=== PATIENT | male | born 1950 | race Caucasian/White ===

== ENCOUNTER 2017-03-04 12:54 | Observation (INO) | payer MEDICARE, OTHER ==
--- NOTE | 2017-03-04 13:39 | ER Document Report ---
ED Medical Screen (RME) - General Chief Complaint: Chest Pain Stated Complaint: CHEST PAIN Time Seen by Provider: 03/04/17 13:38 Notes: Patient states he has had some left shoulder pain for several days and is seen a physician and was diagnosed with a muscle strain. Today he developed shortness of breath nausea and severe chest pain. His states that he looked "white". He states the chest pain is eased off but he still has bad left shoulder pain. He denies any previous history of cardiac disease, however patient has had a stroke in the past. TRAVEL OUTSIDE OF THE [place] IN LAST 30 DAYS: No - Related Data Allergies/Adverse Reactions: meloxicam [From needmade] Allergy (Verified 03/04/17 13:05) Past Medical History - Past Medical History Cardiac Medical History: Reports: Hx Hypercholesterolemia, Hx Hypertension Endocrine Medical History: Reports: Hx Diabetes Mellitus Type 2 Renal/ Medical History: Reports: Hx Kidney Stones. Denies: Hx Peritoneal Dialysis Malignancy Medical History: Reports Hx Skin Cancer Psychiatric Medical History: Reports: Hx Depression Past Surgical History: Reports: Hx Abdominal Surgery - hernia repair x2, Hx Bowel Surgery - colon removal, Hx Orthopedic Surgery - left knee, right 4th finger, left 1st and 2nd partial amputations, Hx Tonsillectomy - Immunizations Immunizations up to date: No Hx Diphtheria, Pertussis, Tetanus Vaccination: No Physical Exam - Vital signs Vitals: Temp Pulse Resp BP Pulse Ox 99.6 F 94 20 128/92 H 96 03/04/17 13:06 03/04/17 13:06 03/04/17 13:06 03/04/17 13:06 03/04/17 13:06 Course - Vital Signs Vital signs: Temp Pulse Resp BP Pulse Ox 99.6 F 94 20 128/92 H 96 03/04/17 13:06 03/04/17 13:06 03/04/17 13:06 03/04/17 13:06 03/04/17 13:06
--- NOTE | 2017-03-04 15:25 | RADIOLOGY REPORT (SQ) ---
EXAM DESCRIPTION: CHEST PA/LAT COMPLETED DATE/TIME: 03/04/2017 2:34 pm REASON FOR STUDY: cp COMPARISON: 04/30/2016 EXAM PARAMETERS: NUMBER OF VIEWS: two views TECHNIQUE: Digital Frontal and Lateral radiographic views of the chest acquired. RADIATION DOSE: NA LIMITATIONS: none FINDINGS: LUNGS AND PLEURA: No opacities, masses or pneumothorax. No pleural effusion. MEDIASTINUM AND HILAR STRUCTURES: No masses or contour abnormalities. HEART AND VASCULAR STRUCTURES: Heart normal size. No evidence for failure. BONES: No acute findings. HARDWARE: None in the chest. OTHER: No other significant finding. IMPRESSION: NO SIGNIFICANT RADIOGRAPHIC FINDING IN THE CHEST. TECHNICAL DOCUMENTATION: JOB ID: [id number] [employer]- All Rights Reserved
[2017-03-04 15:44] LABS: ABSOLUTE BASOPHILS # (AUTO) 0.1 10^3/uL (0.0-0.2); ABSOLUTE LYMPHOCYTES (AUTO) 3.1 10^3/uL (0.5-4.7); ABSOLUTE MONOCYTES (AUTO) 0.6 10^3/uL (0.1-1.4); ABSOLUTE NEUT (AUTO) 9.6 10^3/uL (1.7-8.2); BASOPHILS % (AUTO) 0.5 % (0-2); EOSINOPHILS % (AUTO) 0.4 % (0-6); HEMATOCRIT 45.4 % (37.9-51.0); HEMOGLOBIN 15.3 g/dL (13.5-17.0); HGB HCT DIFFERENCE 0.5; MEAN CORPUSCULAR HEMOGLOBIN 29.8 pg (27.0-33.4); MEAN CORPUSCULAR HGB CONC 33.7 g/dL (32.0-36.0); MEAN CORPUSCULAR VOLUME 89 fl (80-97); MONOCYTES % (AUTO) 4.5 % (3-13); RED BLOOD COUNT 5.12 10^6/uL (4.35-5.55); RED CELL DISTRIBUTION WIDTH 13.7 % (11.5-14.0); SEGMENTED NEUTROPHILS % (AUTO) 71.6 % (42-78); WHITE BLOOD COUNT 13.4 10^3/uL (4.0-10.5)
[2017-03-04] MEDS ORDERED: HYDROCODONE/ACETAMINOPHEN 5-325 MG TABLET PO ONE (16:01)
[2017-03-04] MEDS ORDERED: LIDOCAINE 5% (700 MG) TRANSDERMAL ADH..PATCH TP ONE (16:01)
--- NOTE | 2017-03-04 16:04 | ER Document Report ---
ED Cardiac - General Chief Complaint: Chest Pain Stated Complaint: CHEST PAIN Time Seen by Provider: 03/04/17 13:38 Mode of Arrival: Ambulatory Information source: Patient, Relative Notes: Patient states that he was working in his garage this afternoon and developed sharp midsternal chest pain around 1230. Patient states the pain lasted for about 2 hours and then resolved while waiting here in the emergency department. Patient states that when his symptoms started he did have some ringing in his ears. Patient denies any nausea, vomiting, cough or shortness of breath. Patient does state that he has had left upper back and left arm pain for the past 10 days for which she had been treated by his primary doctor with pain medication and steroids. Patient just finished a course of steroids yesterday and has a follow-up appointment with his primary doctor regarding his left upper extremity pain this week. Patient does have a history of previous CVA, diabetes, dyslipidemia and hypertension. Patient denies any known history of heart disease. TRAVEL OUTSIDE OF THE [place] IN LAST 30 DAYS: No - HPI Patient complains to provider of: Chest pain Was the onset of pain: Sudden Chest pain location: Substernal Quality of pain: Sharp Severity at worst: Moderate Pain level currently: Denies Cardiac risk factors: Diabetes, Hypertension, Dyslipidemia Positive cardiac history: No Associated symptoms: Back pain. denies: Heartburn, Nausea/vomiting, Shortness of breath Exacerbated by: Denies Relieved by: Nothing Similar symptoms previously: No Recently seen / treated by doctor: Yes - Related Data Allergies/Adverse Reactions: meloxicam [From NormOxys] Allergy (Verified 03/04/17 13:05) Home Medications: Current Home Medications Amlodipine Besylate [Norvasc 2.5 mg Tablet] 2.5 mg PO DAILY 03/04/17 [History] Atorvastatin Calcium [Lipitor 10 mg Tablet] 10 mg PO DAILY 03/04/17 [History] Buprenorphine [Butrans] 1 patch TD PEPE@1000 03/04/17 [History] Duloxetine HCl [Cymbalta] 60 mg PO Q12 03/04/17 [History] Gabapentin [Neurontin 300 mg Capsule] 300 mg PO Q8 03/04/17 [History] Hydrocodone/Acetaminophen [Hydrocodon-Acetaminophen 5-325] 1 tab PO Q8HP PRN [History] Metformin HCl [Metformin HCl ER] 500 mg PO DAILY 03/04/17 [History] Pantoprazole Sodium [Protonix] 40 mg PO DAILY 03/04/17 [History] Pantoprazole Sodium [Protonix] 40 mg PO DAILY 03/04/17 [History] Past Medical History - General Information source: Patient - Social History Smoking Status: Never Smoker Chew tobacco use (# tins/day): No Frequency of alcohol use: None Drug Abuse: None Occupation: Retired Lives with: Spouse/Significant other Family History: Reviewed & Not Pertinent Patient has suicidal ideation: No - Past Medical History Cardiac Medical History: Reports: Hx Hypercholesterolemia, Hx Hypertension Denies: Hx Heart Attack Neurological Medical History: Reports: Hx Cerebrovascular Accident Endocrine Medical History: Reports: Hx Diabetes Mellitus Type 2 Renal/ Medical History: Reports: Hx Kidney Stones. Denies: Hx Peritoneal Dialysis Malignancy Medical History: Reports Hx Skin Cancer Psychiatric Medical History: Reports: Hx Depression Past Surgical History: Reports: Hx Abdominal Surgery - hernia repair x2, Hx Bowel Surgery - colon removal, Hx Orthopedic Surgery - left knee, right 4th finger, left 1st and 2nd partial amputations, Hx Tonsillectomy - Immunizations Immunizations up to date: No Hx Diphtheria, Pertussis, Tetanus Vaccination: No Review of Systems - Review of Systems Constitutional: No symptoms reported. denies: Fever, Recent illness EENT: No symptoms reported Cardiovascular: Chest pain. denies: Syncope, Dizziness, Lightheaded Respiratory: No symptoms reported. denies: Cough, Short of breath Gastrointestinal: No symptoms reported. denies: Nausea, Vomiting Genitourinary: No symptoms reported Male Genitourinary: No symptoms reported Musculoskeletal: Back pain, Muscle pain - Left upper extremity Skin: No symptoms reported Hematologic/Lymphatic: No symptoms reported Neurological/Psychological: No symptoms reported. denies: Confusion Physical Exam - Vital signs Vitals: Temp Pulse Resp BP Pulse Ox 99.6 F 94 20 128/92 H 96 03/04/17 13:06 03/04/17 13:06 03/04/17 13:06 03/04/17 13:06 03/04/17 13:06 - General General appearance: Appears well, Alert In distress: None - HEENT Head: Normocephalic, Atraumatic Eyes: Normal Conjunctiva: Normal Nasal: Normal Mouth/Lips: Normal Neck: Normal, Supple. No: Lymphadenopathy - Respiratory Respiratory status: No respiratory distress Chest status: Nontender Breath sounds: Normal. No: Rales, Rhonchi, Stridor, Wheezing Chest palpation: Normal - Cardiovascular Rhythm: Regular Heart sounds: S1 appreciated, S2 appreciated Murmur: No - Abdominal Inspection: Normal Distension: No distension Bowel sounds: Normal Tenderness: Nontender - Back Back: Tender - right trapezius muscle tenderness. No: CVA tenderness, Vertebra tenderness - Extremities General upper extremity: Normal inspection, Nontender, Normal ROM General lower extremity: Normal inspection, Nontender, Normal ROM - Neurological Neuro grossly intact: Yes [place] Coma Scale Eye Opening: Spontaneous [place] Coma Scale Verbal: Oriented [place] Coma Scale Motor: Obeys Commands [place] Coma Scale Total: 15 Speech: Dysarthria - Psychological Associated symptoms: Normal affect, Normal mood - Skin Skin Temperature: Warm Skin Moisture: Dry Skin Color: Normal Course - Re-evaluation Re-evalutation: 03/04/17 17:15 Patient continues to deny any chest pain at this time. Vital signs stable. 03/04/17 18:11 Patient denies any chest pain at this time. Vital signs stable. Patient states pain medication has helped his left shoulder and upper extremity pain. Patient with a heart score of 4, 2 points for age, 2 points for risk factors. Consulted with Dr. Cooper who agrees with plan of care. Consulted with Dr. Villasenor who agrees to accept patient as a telemetry observation admission - Vital Signs Vital signs: Temp Pulse Resp BP Pulse Ox 99.6 F 94 8 L 128/90 H 96 03/04/17 13:06 03/04/17 13:06 03/04/17 17:31 03/04/17 17:31 03/04/17 17:31 - Laboratory Result Diagrams: 03/04/17 15:20 03/04/17 16:25 Laboratory results interpreted by me: 03/04/17 03/04/17 15:20 16:25 WBC 13.4 H Absolute Neutrophils 9.6 H Carbon Dioxide 34 H BUN 22 H Glucose 114 H AST 16 L Creatine Kinase 37 L - Diagnostic Test Radiology reviewed: Reports reviewed - EKG Interpretation by Mt EKG shows normal: Sinus rhythm Rate: Normal Discharge - Discharge Clinical Impression: Chest pain Qualifiers: Chest pain type: unspecified Qualified Code(s): R07.9 - Chest pain, unspecified Condition: Stable Disposition: ADMITTED OBSERVATION Admitting Provider: Hospitalist Unit Admitted: Telemetry
[2017-03-04 17:04] LABS: ALANINE AMINOTRANSFERASE 43 U/L (21-72); ALKALINE PHOSPHATASE 75 U/L (38-126); ANION GAP 10 (5-19); ASPARTATE AMINO TRANSFERASE 16 U/L (17-59); BILIRUBIN,DIRECT 0.4 mg/dL (0.0-0.4); BLOOD UREA NITROGEN 22 mg/dL (7-20); CALCIUM 9.9 mg/dL (8.4-10.2); CARBON DIOXIDE 34 mmol/L (22-30); CHLORIDE 100 mmol/L (98-107); CREATINE KINASE 37 U/L (55-170); CREATININE RESULT 0.79 mg/dL (0.52-1.25); GLUCOSE 114 mg/dL (75-110); POTASSIUM 4.1 mmol/L (3.6-5.0); SODIUM 143.7 mmol/L (137-145); TOTAL PROTEIN 6.5 g/dL (6.3-8.2)
[2017-03-04 17:15] LABS: CREATINE KINASE MB 1.35 ng/mL (<4.55)
[2017-03-04 17:18] LABS: TROPONIN I < 0.012 ng/mL
[2017-03-04] MEDS ORDERED: ONDANSETRON 4 MG TAB.RAPDIS PO PRN (18:18)
[2017-03-04] MEDS ORDERED: ACETAMINOPHEN 325 MG TABLET PO PRN (18:18)
[2017-03-04] MEDS ORDERED: ONDANSETRON HCL INJ/PF 4 MG/2 ML SDV IV PRN (18:18)
[2017-03-04] MEDS ORDERED: GLUCAGON,HUMAN RECOMB 1 MG INJ IM PRN (18:38)
[2017-03-04] MEDS ORDERED: DEXTROSE 40% GEL 15 GM TUBE PO PRN ×2 (18:38)
[2017-03-04] MEDS ORDERED: DEXTROSE 50%-WATER 25 GM/50 ML DISP.SYRIN IV PRN ×2 (18:38)
[2017-03-04] MEDS ORDERED: INSULIN LISPRO 100 UNIT/ML 3 ML VIAL SUBCUT PRN (18:38)
--- NOTE | 2017-03-04 18:38 | EKG REPORT ---
SEVERITY:- NORMAL ECG - SINUS RHYTHM : Confirmed by: Chloe Mclain 04-Mar-2017 18:36:43
--- NOTE | 2017-03-04 18:54 | PDOC H&P ---
History of Present Illness Admission Date/PCP: DIANNA HEBERT MD Patient complains of: Chest pain History of Present Illness: DAYRON WILEY is a 66 year old maleWho has no history of coronary artery disease but does have hypertension and diabetes who presented with chest pain. The patient reports that today he was doing minimal exertion and developed substernal chest pain. He described it as 10 out of 10 sharp pain. It did not radiate. Over the last week however he has been having pain in his left shoulder and left arm. He recently saw his primary care doctor who felt that this was most likely musculoskeletal gave him some steroids with some improvement. Patient did not have any pain in his arm or shoulder today when he had his chest pain. He denies having any nausea vomiting or diaphoresis. The patient denies any palpitations or tachycardia. He denies any cough. Denies any fevers or chills. Denies any lower extremity edema. Denies any orthopnea or PND. The patient does take an aspirin every day and did take it today. Past Medical History Cardiac Medical History: Reports: Hyperlipidema, Hypertension Denies: Myocardial Infarction Pulmonary Medical History: Reports: None Neurological Medical History: Reports: Hemorrhagic CVA, Ischemic CVA Endocrine Medical History: Reports: Diabetes Mellitus Type 2 Renal/ Medical History: Reports: None Malignancy Medical History: Reports: Skin Cancer - Malignant melanoma GI Medical History: Reports: Gastroesophageal Reflux Disease Psychiatric Medical History: Reports: Depression Traumatic Medical History: Reports: None Hematology: Reports: None Infectious Medical History: Reports: None Past Surgical History Past Surgical History: Reports: Orthopedic Surgery - left knee, right 4th finger , left 1st and 2nd partial amputations, Tonsillectomy, Other - Prostatectomy secondary to prostate cancer. Partial colectomy at age 19. Social History Lives with: Spouse/Significant other Smoking Status: Never Smoker Frequency of Alcohol Use: None Hx Recreational Drug Use: No Drugs: None Hx Prescription Drug Abuse: No - Advance Directive Resuscitation Status: Full Code Surrogate healthcare decision maker:: Family History Family History: No history of heart disease. Parental Family History Reviewed: Yes Children Family History Reviewed: No Sibling(s) Family History Reviewed.: No Medication/Allergy Home Medications: Amlodipine Besylate [Norvasc 2.5 mg Tablet] 2.5 mg PO DAILY 03/04/17 Atorvastatin Calcium [Lipitor 10 mg Tablet] 10 mg PO DAILY 03/04/17 Buprenorphine [Butrans] 1 patch TD PEPE@1000 03/04/17 Duloxetine HCl [Cymbalta] 60 mg PO Q12 03/04/17 Gabapentin [Neurontin 300 mg Capsule] 300 mg PO Q8 03/04/17 Hydrocodone/Acetaminophen [Hydrocodon-Acetaminophen 5-325] 1 tab PO Q8HP PRN Metformin HCl [Metformin HCl ER] 500 mg PO DAILY 03/04/17 Pantoprazole Sodium [Protonix] 40 mg PO DAILY 03/04/17 Pantoprazole Sodium [Protonix] 40 mg PO DAILY 03/04/17 Allergies/Adverse Reactions: meloxicam [From Mobic] Allergy (Verified 03/04/17 13:05) Review of Systems Constitutional: ABSENT: chills, fever(s), headache(s), weight gain, weight loss Eyes: ABSENT: visual disturbances Ears: ABSENT: hearing changes Cardiovascular: PRESENT: chest pain. ABSENT: dyspnea on exertion, edema, orthropnea, palpitations Respiratory: ABSENT: cough, hemoptysis Gastrointestinal: ABSENT: abdominal pain, constipation, diarrhea, hematemesis, hematochezia, nausea, vomiting Genitourinary: ABSENT: dysuria, hematuria Musculoskeletal: ABSENT: joint swelling Integumentary: ABSENT: rash, wounds Neurological: PRESENT: weakness - Minimal right-sided weakness Psychiatric: ABSENT: anxiety, depression Endocrine: ABSENT: cold intolerance, heat intolerance, polydipsia, polyuria Hematologic/Lymphatic: ABSENT: easy bleeding, easy bruising Physical Exam Vital Signs: Temp Pulse Resp BP Pulse Ox 99.6 F 94 8 L 128/90 H 96 03/04/17 13:06 03/04/17 13:06 03/04/17 17:31 03/04/17 17:31 03/04/17 17:31 Intake & Output 03/03/17 03/04/17 03/05/17 06:59 06:59 06:59 Weight 97.522 kg General appearance: PRESENT: no acute distress, well-developed, well-nourished Head exam: PRESENT: atraumatic, normocephalic Eye exam: PRESENT: conjunctiva pink, EOMI, PERRLA. ABSENT: scleral icterus Ear exam: PRESENT: normal external ear exam Mouth exam: PRESENT: moist, tongue midline Neck exam: ABSENT: carotid bruit, JVD, lymphadenopathy, thyromegaly Respiratory exam: PRESENT: clear to auscultation bam. ABSENT: rales, rhonchi, wheezes Cardiovascular exam: PRESENT: RRR. ABSENT: diastolic murmur, rubs, systolic murmur Pulses: PRESENT: normal dorsalis pedis pul Vascular exam: PRESENT: normal capillary refill GI/Abdominal exam: PRESENT: normal bowel sounds, soft. ABSENT: distended, guarding, mass, organolmegaly, rebound, tenderness Rectal exam: PRESENT: deferred Extremities exam: ABSENT: calf tenderness, clubbing, pedal edema Neurological exam: PRESENT: alert, awake, oriented to person, oriented to place , oriented to time, oriented to situation, CN II-XII grossly intact, other - Slightly slow speech. ABSENT: motor sensory deficit Psychiatric exam: PRESENT: appropriate affect Skin exam: PRESENT: dry, intact, skin tears - On his upper scalp, warm. ABSENT : cyanosis, rash Results Laboratory Results: 03/04/17 15:20 03/04/17 16:25 03/04/17 03/04/17 03/04/17 15:20 15:20 16:25 WBC 13.4 H RBC 5.12 Hgb 15.3 Hct 45.4 MCV 89 MCH 29.8 MCHC 33.7 RDW 13.7 Plt Count 192 Seg Neutrophils % 71.6 Lymphocytes % 23.0 Monocytes % 4.5 Eosinophils % 0.4 Basophils % 0.5 Absolute Neutrophils 9.6 H Absolute Lymphocytes 3.1 Absolute Monocytes 0.6 Absolute Eosinophils 0.0 Absolute Basophils 0.1 Sodium Cancelled 143.7 Potassium Cancelled 4.1 Chloride Cancelled 100 Carbon Dioxide Cancelled 34 H Anion Gap Cancelled 10 BUN Cancelled 22 H Creatinine Cancelled 0.79 Est GFR ( Amer) Cancelled > 60 Est GFR (Non-Af Amer) Cancelled > 60 Glucose Cancelled 114 H Calcium Cancelled 9.9 Total Bilirubin Cancelled 1.0 AST Cancelled 16 L ALT Cancelled 43 Alkaline Phosphatase Cancelled 75 Total Protein Cancelled 6.5 Albumin Cancelled 4.0 03/04/17 03/04/17 03/04/17 15:20 16:25 16:25 Creatine Kinase 37 L CK-MB (CK-2) 1.35 Troponin I Cancelled < 0.012 EKG Comments: No significant ST segment changes. Impressions: Chest X-Ray 03/04/17 13:38 IMPRESSION: NO SIGNIFICANT RADIOGRAPHIC FINDING IN THE CHEST. Assessment & Plan - Diagnosis (1) Chest pain Qualifiers: Chest pain type: unspecified Qualified Code(s): R07.9 - Chest pain, unspecified Is this a current diagnosis for this admission?: Yes Plan: The patient's chest pain by description sounds like it is most likely costochondritis. Certainly does have risk factors in that he has hypertension and diabetes and has had a previous stroke. Will monitor on telemetry and check serial cardiac enzymes. If they are negative we will do a stress test. Patient will continue with his aspirin. (2) Diabetes mellitus Is this a current diagnosis for this admission?: Yes Plan: We will hold his oral agents and cover with sliding scale insulin. (3) Hypertension Is this a current diagnosis for this admission?: Yes (4) Depression Is this a current diagnosis for this admission?: Yes (5) Melanoma Is this a current diagnosis for this admission?: Yes Plan: Patient has a history of melanoma of the scalp and has had radiation previously. This is been over a year and he is currently cancer free. (6) CVA (cerebral vascular accident) Is this a current diagnosis for this admission?: Yes Plan: Patient had a CVA last year and did have a small amount of hemorrhagic conversion. Because of this will avoid heparin and Lovenox. - Time Time Spent: 50 to 70 Minutes - Plan Summary Plan Summary: Patient is admitted as observation.
[2017-03-04 23:10] LABS: CREATINE KINASE MB 1.25 ng/mL (<4.55)
[2017-03-04 23:12] LABS: TROPONIN I < 0.012 ng/mL
[2017-03-05] MEDS ORDERED: HYDROCODONE/ACETAMINOPHEN 5-325 MG TABLET ONE (01:20)
[2017-03-05] MEDS ORDERED: HYDROCODONE/ACETAMINOPHEN 5-325 MG TABLET PO ONE (01:45)
[2017-03-05 05:35] LABS: CREATINE KINASE MB 1.11 ng/mL (<4.55); TROPONIN I < 0.012 ng/mL
[2017-03-05] MEDS ORDERED: REGADENOSON INJ 0.4 MG/5 ML DISP.SYRIN IV ONE (09:57)
[2017-03-05] MEDS ORDERED: AMINOPHYLLINE INJ/PF 250 MG/10 ML SDV IV ONE (09:57)
[2017-03-05] MEDS ORDERED: ASPIRIN 81 MG TABLET, ENT COATED PO SCH (10:00)
--- NOTE | 2017-03-05 11:40 | DRAGON STRESS TEST REPORT ---
INTRAVENOUS LEXISCAN CARDIOLITE STRESS TEST USING SINGLE PHOTON EMMISION COMPUTERIZED TOMOGRAPHIC. DATE OF PROCEDURE: March 05, 2017 INDICATION : Chest pain CARDIAC RISK FACTORS: Diabetes, hypertension, history of cerebrovascular accident RESTING EKG: Sinus rhythm, no no baseline ST segment changes noted. STRESS EKG: No significant changes noted with LexiScan bolus REASON FOR TERMINATION: Protocol. PROCEDURE REPORT: Baseline heart rate 59 beats per minute with blood pressure of 129/89. Patient had no significant complaints. Heart rate at 2 minutes post bolus 77 with a blood pressure of 143/76. 3 minutes post bolus heart rate 78 with blood pressure of 159/79. No significant EKG changes were noted. Patient had no significant complaints during the procedure or postprocedure. Patient injected with Aminophyllin 75 mg at 3 minutes or later after Lexiscan bolus. CONCLUSIONS: Normal EKG and hemodynamic response to IV LexiScan. NUCLEAR DATA: At rest the patient was given 14.64 millicuries of technetium 99 sestamibi injected intravenously. As per protocol rest gated SPECT images were obtained. Subsequently the patient was given intravenous LexiScan at a dose of 0.4 mg in 5 mL intravenously, followed by flush with normal saline. Subsequently the stress dose of 43.3 millicuries of technetium 99 sestamibi was injected intravenously. As per protocol stress gated images were obtained. NUCLEAR INTERPRETATION: Both raw and processed data were used for interpretation. Visual, qualitative, computer-generated quantitative data was used. There was good myocardial uptake of technetium compound. Motion artifact and soft tissue attenuations were noted. Increased visceral uptake was noted. Mild transient perfusion defect noted in the basal and mid inferior wall with a smaller fixed defect in the same area. This is consistent with mild ischemia with a smaller underlying mild fixed defect. EKG gated imaging showed LV EF at 38 %, rest and stress gated EF similar visually. T. I D. ratio was 1.15. Lung heart ratio noted to be within normal limits 0.26. No significant extracardiac and abnormal radiotracer activities were noted. RV free wall uptake was noted to be WNL. IMPRESSION: Also refer to comments under nuclear interpretation. Also test results needs to be interpreted in the context of pretest probability. 1. Mild ischemia noted in the basal and mid inferior wall. 2. Smaller mild underlying basal and mid inferior wall fixed defect suggestive of underlying myocardial infarction/scar. 3. EKG gated imaging shows left ventricular ejection fraction of approximately 38 %. 4. Clinical correlation requested as occasionally worse disease or balanced ischemia could be missed. In approximately 10% of the cases Lexiscan may not cause adequate vasodilatory stress. RECOMMENDATIONS: Aggressive risk factor modification, medical therapy. Clinical correlation with echocardiogram derived ejection fraction. Inability to exercise by itself can lead to increased cardiovascular event risks. Consider cardiology consultation and or follow-up if clinically indicated. I AM AVAILABLE FOR CARDIOLOGY CONSULTATION AND FOLLOWUP IF REQUESTED BY PMD Chloe Mclain M.D., [employer] Manager [employer]ostatistics sand conditioner, Board certified in cardiovascular diseases, Nuclear cardiology, Echocardiography Cardiac CT and cardiac MRI Ph. [phone] JADA
[2017-03-05 11:56] LABS: CREATINE KINASE MB 1.18 ng/mL (<4.55)
[2017-03-05 12:03] LABS: TROPONIN I < 0.012 ng/mL
--- NOTE | 2017-03-05 14:48 | PDOC DISCHARGE SUMMARY ---
General - Admit/Disc Date/PCP Admission Date/Primary Care Provider: 03/04/17 18:18 DIANNA HEBERT MD Discharge Date: 03/05/17 - Discharge Diagnosis (1) Chest pain Is this a current diagnosis for this admission?: Yes (2) Depression Is this a current diagnosis for this admission?: Yes (3) Diabetes mellitus Is this a current diagnosis for this admission?: Yes (4) Hypertension Is this a current diagnosis for this admission?: Yes (5) CVA (cerebral vascular accident) Is this a current diagnosis for this admission?: Yes - Additional Information Resuscitation Status: Full Code Discharge Diet: Cardiac - Low-fat low-salt, Diabetic - No concentrated sweets Discharge Activity: Activity As Tolerated, Balance Activity w/Rest Home Medications: Aspirin [Adult Low Dose Aspirin EC] 81 mg PO DAILY 03/04/17 Atorvastatin Calcium [Lipitor 10 mg Tablet] 10 mg PO QHS 03/04/17 Buprenorphine [Butrans] 1 patch TD PEPE@1000 03/04/17 Duloxetine HCl [Cymbalta] 60 mg PO Q12 03/04/17 Gabapentin [Neurontin 300 mg Capsule] 300 mg PO BID 03/04/17 Hydrocodone/Acetaminophen [Hydrocodon-Acetaminophen 5-325] 1 tab PO Q8HP PRN Metformin HCl [Metformin HCl ER] 500 mg PO QHS 03/04/17 Pantoprazole Sodium [Protonix] 40 mg PO DAILY 03/04/17 Trazodone HCl 100 mg PO QHS 03/04/17 Lisinopril [Prinivil 2.5 mg Tablet] 2.5 mg PO DAILY #30 tablet 03/05/17 Metoprolol Succinate [Toprol Xl 50 mg Tab.sr] 50 mg PO DAILY #30 tab.sr.24h Nitroglycerin 0.3 mg SL Q15MP PRN #30 tab.subl 03/05/17 Additional Information: Return to the emergency room if symptoms recur. History of Present Illness Patient complains of: Chest pain History of Present Illness: DAYRON WILEY is a 66 year old maleWho has no history of coronary artery disease but does have hypertension and diabetes who presented with chest pain. The patient reports that today he was doing minimal exertion and developed substernal chest pain. He described it as 10 out of 10 sharp pain. It did not radiate. Over the last week however he has been having pain in his left shoulder and left arm. He recently saw his primary care doctor who felt that this was most likely musculoskeletal gave him some steroids with some improvement. Patient did not have any pain in his arm or shoulder today when he had his chest pain. He denies having any nausea vomiting or diaphoresis. The patient denies any palpitations or tachycardia. He denies any cough. Denies any fevers or chills. Denies any lower extremity edema. Denies any orthopnea or PND. The patient does take an aspirin every day and did take it today. For details please refer to history and physical examination performed by the admitting physician. Hospital Course Hospital Course: The patient was admitted to observation. Serial cardiac enzymes were obtained and they were negative for myocardial infarction. Patient was continued on aspirin. Patient was given hydrocodone and lidocaine patch and patient's discomfort eventually resolved. Patient eventually scheduled for stress test and was performed and noted some mild abnormality and cardiology recommended medical management. The patient does not want to stay in the hospital and wants to be discharged home and follow-up on an outpatient basis. He agreed to see cardiology on an outpatient basis. He was advised to return to the emergency room if symptoms recur. The rest of the hospital stays unremarkable. Physical Exam Vital Signs: Temp Pulse Resp BP Pulse Ox 98.4 F 82 16 128/78 H 96 03/05/17 07:51 03/05/17 14:00 03/05/17 07:51 03/05/17 07:51 03/05/17 07:51 Intake & Output 03/04/17 03/05/17 03/06/17 06:59 06:59 06:59 Intake Total 90 200 Output Total 0 Balance 90 200 Weight 96.2 kg General appearance: PRESENT: no acute distress, cooperative Head exam: PRESENT: normocephalic Eye exam: PRESENT: EOMI Mouth exam: PRESENT: moist, neck supple Neck exam: ABSENT: JVD Respiratory exam: PRESENT: clear to auscultation bam Cardiovascular exam: PRESENT: RRR GI/Abdominal exam: PRESENT: normal bowel sounds, soft. ABSENT: distended Extremities exam: ABSENT: pedal edema Neurological exam: PRESENT: alert, awake, oriented to situation Skin exam: PRESENT: dry, warm. ABSENT: cyanosis Results Laboratory Results: 03/05/17 04:46 Magnesium 2.1 03/04/17 03/04/17 03/05/17 22:30 22:30 04:46 Creatine Kinase 31 L 25 L CK-MB (CK-2) 1.25 Troponin I < 0.012 03/05/17 03/05/17 04:46 10:51 Creatine Kinase CK-MB (CK-2) 1.11 1.18 Troponin I < 0.012 < 0.012 Impressions: Chest X-Ray 03/04/17 13:38 IMPRESSION: NO SIGNIFICANT RADIOGRAPHIC FINDING IN THE CHEST. Qualifiers PATEINT BEING DISCHARGED WITH ANY OF THE FOLLOWING DIAGNOSIS?: No Plan Discharge Plan: Follow-up with cardiology Dr. Mclain 03/06/2017. Follow-up with primary care physician in 1 week. Time Spent: Less than 30 Minutes
[2017-03-05 15:53] VITALS: BP 135/86
== END 2017-03-05 16:15 | disposition home or self-care (01) ==
LOC: ER 12:54 → EH 18:18 → UNDOADMOB 18:20 → 4W 22:19
PROVIDERS: ADMIT Internal Medicine; ATTEND Internal Medicine
DX: R07.2 Precordial pain (principal); F32.9 Major depressive disorder, single episode, unspecified; E11.9 Type 2 diabetes mellitus without complications; I10 Essential (primary) hypertension; G89.4 Chronic pain syndrome; M25.512 Pain in left shoulder; M79.602 Pain in left arm; R94.39 Abnormal result of other cardiovascular function study; E78.5 Hyperlipidemia, unspecified; H93.13 Tinnitus, bilateral; M54.9 Dorsalgia, unspecified; R53.1 Weakness; Z86.73 Personal history of transient ischemic attack (TIA), and cerebral infarction without residual deficits; Z79.891 Long term (current) use of opiate analgesic; Z79.84 Long term (current) use of oral hypoglycemic drugs; Z85.820 Personal history of malignant melanoma of skin; Z85.46 Personal history of malignant neoplasm of prostate; Z90.79 Acquired absence of other genital organ(s); Z90.49 Acquired absence of other specified parts of digestive tract; Z79.899 Other long term (current) drug therapy; Z92.3 Personal history of irradiation
CPT/HCPCS: 93005; 99285; 36415 ×2; 82553 ×2; 82962 ×2; 82550 ×2; 83735; 85025; 80053; 84484 ×2; 93017; 71020; 78452; 93010; A9500; J2785; A9270 ×4; J3490; J0280; Q9969

== ENCOUNTER 2017-06-20 10:38 | Observation (INO) | payer MEDICARE, OTHER ==
[2017-06-20] MEDS ORDERED: ONDANSETRON HCL INJ/PF 4 MG/2 ML SDV IV ONE (10:57)
[2017-06-20] MEDS ORDERED: MORPHINE SULFATE 10 MG/ML INJ IV ONE ×2 (10:57→15:29)
--- NOTE | 2017-06-20 11:00 | ER Document Report ---
ED GI/ - General Chief Complaint: Abdominal Pain Stated Complaint: ABDOMINAL PAIN Time Seen by Provider: 06/20/17 10:55 Notes: Patient has pain in the left lower quadrant for the past 3 days. He has had some nausea but not vomiting. Has pain in the left lower quadrant only. Has had some loose stools. Has a history of diverticulitis and says he has had this about 3 times in the past. Patient has difficulty relating history because he has had a stroke and it gives him some partial aphasia. arrived and provided additional information. She says that the patient has had diarrhea for 3 days, but only pain since last night. Has not had any blood in his stools. Patient had 4 feet of colon removed many years ago for diverticulitis. Has had 3 or 4 episodes of diverticulitis. Post appendectomy and cholecystectomy. TRAVEL OUTSIDE OF THE [place] IN LAST 30 DAYS: No - Related Data Allergies/Adverse Reactions: meloxicam [From [place]] Allergy (Verified 06/20/17 11:07) Past Medical History - Social History Smoking Status: Unknown if Ever Smoked Cigarette use (# per day): No Family History: Reviewed & Not Pertinent - Past Medical History Cardiac Medical History: Reports: Hx Hypercholesterolemia, Hx Hypertension Denies: Hx Heart Attack Neurological Medical History: Reports: Hx Cerebrovascular Accident Endocrine Medical History: Reports: Hx Diabetes Mellitus Type 2 Renal/ Medical History: Reports: Hx Kidney Stones. Denies: Hx Peritoneal Dialysis Malignancy Medical History: Reports Hx Skin Cancer - Removed from the superior cranium area over a year ago GI Medical History: Reports: Hx Diverticulitis, Hx Gastroesophageal Reflux Disease Psychiatric Medical History: Reports: Hx Depression Past Surgical History: Reports: Hx Abdominal Surgery - hernia repair x2, Hx Bowel Surgery - colon removal, Hx Orthopedic Surgery - left knee, right 4th finger, left 1st and 2nd partial amputations, Hx Tonsillectomy, Other - Prostatectomy secondary to prostate cancer. Partial colectomy at age 19. - Immunizations Immunizations up to date: No Hx Diphtheria, Pertussis, Tetanus Vaccination: No Review of Systems - Review of Systems Notes: REVIEW OF SYSTEMS: CONSTITUTIONAL : Denies fever. EENT: Denies eye, ear, nose or mouth or throat pain or other symptoms. CARDIOVASCULAR: Denies chest pain. RESPIRATORY: Denies cough, chest congestion, or shortness of breath. GASTROINTESTINAL: See HPI. GENITOURINARY: Denies difficulty or painful urinating, urinary frequency, blood in urine. MUSCULOSKELETAL: Denies back or neck pain. Denies joint pain or swelling. SKIN: Denies rash. Patient has multiple skin cancers and removal sites on the top of his head from about a year ago. Skin is very fragile in that location. NEUROLOGICAL: Denies LOC or altered mental status. Some difficulty with speech and expressive aphasia secondary to previous strokes. Denies sensory loss or motor deficits. ALL OTHER SYSTEMS REVIEWED AND NEGATIVE. Physical Exam - Vital signs Vitals: Pulse BP 46 L 145/78 H 06/20/17 10:48 06/20/17 10:48 - Notes Notes: PHYSICAL EXAMINATION: GENERAL: Well-appearing, but anxious and seems in pain. HEAD: Atraumatic, normocephalic. Multiple lesions on the top of the head from where patient had skin cancers removed over a year ago.. He has a bandage over these lesions. EYES: Pupils equal round and reactive to light, extraocular movements intact. ENT: oropharynx clear without exudates. Moist mucous membranes. NECK: Normal range of motion, supple. No carotid bruits heard. LUNGS: Breath sounds clear and equal bilaterally. HEART: Regular rate and rhythm without murmurs. ABDOMEN: Tender in the left lower quadrant of the abdomen with guarding. No rebound. No masses felt. Bowel sounds are present. BACK: No tenderness throughout entire back. EXTREMITIES: Normal range of motion without pain. NEUROLOGICAL: Mild to moderate degree of expressive aphasia. Normal gait. Normal sensory, motor, and reflex exams. Awake, alert, and oriented x3. SKIN: Warm, dry, no rashes. Lesions previously described on the patient's head from skin cancer removal over a year ago. Course - Re-evaluation Re-evalutation: 06/20/17 15:42 Discussed the findings of the patient's CT scan with the hospitalist marketing operations specialist who will admit the patient for IV antibiotics. She said that she will write the order for the antibiotics. - Vital Signs Vital signs: Temp Pulse Resp BP Pulse Ox 46 L 28 H 125/80 98 06/20/17 10:48 06/20/17 15:23 06/20/17 15:23 06/20/17 15:23 - Laboratory Result Diagrams: 06/20/17 10:53 06/20/17 10:53 Laboratory results interpreted by me: 06/20/17 06/20/17 06/20/17 10:53 10:53 14:15 RBC 4.12 L Hgb 12.7 L Hct 36.8 L Plt Count 137 L Potassium 3.4 L Glucose 180 H Total Protein 6.2 L Urine Glucose (UA) 50 H Urine Blood SMALL H - Diagnostic Test Radiology reviewed: Image reviewed, Reports reviewed - Patient's CT scan shows diverticulitis of the descending colon without evidence of abscess or free air. - EKG Interpretation by Me EKG shows normal: Sinus rhythm Rate: Normal - Heart rate is 83/min. Rhythm: NSR Discharge - Discharge Clinical Impression: Diverticulitis Condition: Stable Disposition: ADMITTED INPATIENT Admitting Provider: Hospitalist Unit Admitted: Medical Floor Referrals: DIANNA HEBERT MD [Primary Care Provider] - Follow up as needed
[2017-06-20 11:04] LABS: ABSOLUTE EOSINOPHILS # (AUTO) 0.2 10^3/uL (0.0-0.6); ABSOLUTE LYMPHOCYTES (AUTO) 1.7 10^3/uL (0.5-4.7); ABSOLUTE MONOCYTES (AUTO) 0.6 10^3/uL (0.1-1.4); ABSOLUTE NEUT (AUTO) 5.3 10^3/uL (1.7-8.2); BASOPHILS % (AUTO) 0.4 % (0-2); EOSINOPHILS % (AUTO) 2.7 % (0-6); HEMATOCRIT 36.8 % (37.9-51.0); HEMOGLOBIN 12.7 g/dL (13.5-17.0); LYMPHOCYTES % (AUTO) 21.7 % (13-45); MEAN CORPUSCULAR HEMOGLOBIN 30.8 pg (27.0-33.4); MEAN CORPUSCULAR HGB CONC 34.5 g/dL (32.0-36.0); MEAN CORPUSCULAR VOLUME 89 fl (80-97); MONOCYTES % (AUTO) 7.9 % (3-13); PLATELET COUNT 137 10^3/uL (150-450); RED BLOOD COUNT 4.12 10^6/uL (4.35-5.55); RED CELL DISTRIBUTION WIDTH 13.3 % (11.5-14.0); SEGMENTED NEUTROPHILS % (AUTO) 67.3 % (42-78); TOTAL CELLS COUNTED % (AUTO) 100 %; WHITE BLOOD COUNT 7.9 10^3/uL (4.0-10.5)
[2017-06-20 11:25] LABS: ALANINE AMINOTRANSFERASE 25 U/L (21-72); ALBUMIN 3.6 g/dL (3.5-5.0); ALKALINE PHOSPHATASE 78 U/L (38-126); ANION GAP 5 (5-19); ASPARTATE AMINO TRANSFERASE 17 U/L (17-59); BILIRUBIN,DIRECT 0.3 mg/dL (0.0-0.4); BILIRUBIN,TOTAL 1.2 mg/dL (0.2-1.3); BLOOD UREA NITROGEN 8 mg/dL (7-20); CALCIUM 8.6 mg/dL (8.4-10.2); CARBON DIOXIDE 30 mmol/L (22-30); CHLORIDE 102 mmol/L (98-107); GLUCOSE 180 mg/dL (75-110); LIPASE 33.3 U/L (23-300); POTASSIUM 3.4 mmol/L (3.6-5.0); SODIUM 137.1 mmol/L (137-145); TOTAL PROTEIN 6.2 g/dL (6.3-8.2)
[2017-06-20 14:47] LABS: APPEARANCE,URINE CLEAR; BILIRUBIN,URINE NEGATIVE (NEGATIVE); COLOR,URINE YELLOW; GLUCOSE, URINE 50 mg/dL (NEGATIVE); KETONES,URINE NEGATIVE (NEGATIVE); LEUKOCYTE ESTERASE,URINE NEGATIVE (NEGATIVE); NITRITE,URINE NEGATIVE (NEGATIVE); PROTEIN,URINE NEGATIVE (NEGATIVE); UROBILINOGEN,URINE NEGATIVE mg/dL (<2.0)
--- NOTE | 2017-06-20 15:00 | RADIOLOGY REPORT (SQ) ---
EXAM DESCRIPTION: CT ABD/PELVIS WITH IV ORAL COMPLETED DATE/TIME: 06/20/2017 2:38 pm REASON FOR STUDY: LLQ pain and Hx diverticulitis COMPARISON: None. TECHNIQUE: CT scan of the abdomen and pelvis performed using helical scanning technique with dynamic intravenous contrast injection. No oral contrast. Images reviewed with lung, soft tissue, and bone windows. Reconstructed coronal and sagittal MPR images reviewed. Delayed images for evaluation of the urinary system also acquired. All images stored on PACS. All CT scanners at this facility use dose modulation, iterative reconstruction, and/or weight based d osing when appropriate to reduce radiation dose to as low as reasonably achievable (ALARA). [facility]: Dose Right [facility]: CareDose [facility]: Dose Right [facility]: Teradose 4D [facility]: Practice Fusion CONTRAST TYPE AND DOSE: contrast/concentration: Isovue 370.00 mg/ml; Total Contrast Delivered: 100.0 ml; Total Saline Delivered: 70.0 ml RENAL FUNCTION: Creatinine 0.72 RADIATION DOSE: CT Rad equipment meets quality standard of care and radiation dose reduction techniq ues were employed. CTDIvol: 17.8 - 20.7 mGy. DLP: 2200 mGy-cm.. LIMITATIONS: None. FINDINGS: LOWER CHEST: No significant findings. No nodules or infiltrates. Minimal scarring. LIVER: Normal size. No masses. No dilated ducts. SPLEEN: Normal size. No focal lesions. PANCREAS: No masses. No significant calcifications. No adjacent inflammation or peripancreatic fluid collections. Pancreatic duct not dilated. GALLBLADDER: Surgically absent. ADRENAL GLANDS: No significant masses or asymmetry. RIGHT KIDNEY AND URETER: No solid masses. No significant calcifications. No hydronephrosis or hyd roureter. LEFT KIDNEY AND URETER: Small left renal cysts largest measuring 2 cm. No solid masses. No signifi cant calcifications. No hydronephrosis or hydroureter. AORTA AND VESSELS: No aneurysm. No dissection. Renal arteries, SMA, celiac without stenosis. RETROPERITONEUM: No retroperitoneal adenopathy, hemorrhage or masses. BOWEL AND PERITONEAL CAVITY: Multiple diverticula are seen in the lower descending colon. There is b owel wall thickening with a thick walled diverticula and surrounding inflammatory change in the lower descending colon consistent with diverticulitis. No abscess is identified. No free air is seen. APPENDIX: Normal. PELVIS: No mass. No free fluid. Normal bladder. ABDOMINAL WALL: No masses. No hernias. BONES: No significant or acute findings. OTHER: No other significant finding. IMPRESSION: 1. Diverticulitis involving the lower descending colon. No abscess. No free air. TECHNICAL DOCUMENTATION: JOB ID: [id number] Quality ID # [id number]: Final reports with documentation of one or more dose reduction techniques (e.g., Au tomated exposure control, adjustment of the mA and/or kV according to patient size, use of iterative reconstruction technique) 2010 [id number]- All Rights Reserved
[2017-06-20] MEDS ORDERED: MORPHINE SULFATE 10 MG/ML INJ IV PRN (15:37)
[2017-06-20] MEDS ORDERED: ZOLPIDEM TARTRATE 5 MG TABLET PO PRN (15:37)
[2017-06-20] MEDS ORDERED: ONDANSETRON HCL INJ/PF 4 MG/2 ML SDV IV PRN (15:37)
[2017-06-20] MEDS: POTASSI CL 40 MEQ/NS 1L 1,000 ML IV PRN ×2 (16:34→19:41)
[2017-06-20] MEDS: PIPERACILLIN SODIUM/TAZOBACTAM 3.375 GM in NORMAL SALINE 100 ML IV SCH ×2 (17:20→23:51)
[2017-06-20] MEDS ORDERED: DEXTROSE 50%-WATER 25 GM/50 ML DISP.SYRIN IV PRN ×2 (17:27)
[2017-06-20] MEDS ORDERED: DEXTROSE 40% GEL 15 GM TUBE PO PRN ×2 (17:27)
[2017-06-20] MEDS ORDERED: GLUCAGON,HUMAN RECOMB 1 MG INJ IM PRN (17:27)
[2017-06-20] MEDS ORDERED: INSULIN LISPRO 100 UNIT/ML 3 ML VIAL SUBCUT PRN (17:27)
--- NOTE | 2017-06-20 17:37 | PDOC H&P ---
History of Present Illness Admission Date/PCP: 06/20/17 16:10 DIANNA HEBERT MD Patient complains of: Left-sided stomach pain since yesterday History of Present Illness: DAYRON WILEY is a 67 year old male presents to emergency room accompanied by his complains of left-sided stomach pain since yesterday. He had been having watery diarrhea for the past 2-3 days. He denies fever or chills. He threw up only once. Accordingly he had had similar episode many years ago when he had a bout of diverticulitis which required partial colon resection. During the course of evaluation in emergency room CT scan was significant for left-sided diverticulitis and since patient was in significant amount of pain the hospitalist service was consulted and prompted to admit for further management Past Medical History Cardiac Medical History: Reports: Hyperlipidema, Hypertension Denies: Myocardial Infarction Pulmonary Medical History: Reports: None EENT Medical History: Reports: None Neurological Medical History: Reports: None Endocrine Medical History: Reports: Diabetes Mellitus Type 2 Malignancy Medical History: Reports: Skin Cancer - Removed from the superior cranium area over a year ago, Other - Prostate cancer prostate cancer GI Medical History: Reports: Diverticulitis, Gastroesophageal Reflux Disease Musculoskeltal Medical History: Reports: None Skin Medical History: Reports: None Psychiatric Medical History: Reports: Depression Traumatic Medical History: Reports: None Hematology: Reports: None Infectious Medical History: Reports: None Past Surgical History Past Surgical History: Reports: Appendectomy, Cholecystectomy, Knee Replacement , Orthopedic Surgery - left knee, right 4th finger, left 1st and 2nd partial amputations, Tonsillectomy, Other - Prostatectomy secondary to prostate cancer. Partial colectomy at age 19. Social History Information Source: Patient Lives with: Spouse/Significant other Smoking Status: Never Smoker Frequency of Alcohol Use: None Hx Recreational Drug Use: No Drugs: None Hx Prescription Drug Abuse: No Family History Family History: Malignancy Parental Family History Reviewed: Yes Children Family History Reviewed: Yes Sibling(s) Family History Reviewed.: Yes Medication/Allergy Allergies/Adverse Reactions: meloxicam [From [facility]] Allergy (Verified 06/20/17 11:07) Review of Systems Constitutional: ABSENT: chills, fatigue, fever(s), headache(s), weakness Eyes: ABSENT: visual disturbances Ears: ABSENT: hearing changes Nose, Mouth, and Throat: ABSENT: mouth pain, sore throat Cardiovascular: ABSENT: dyspnea on exertion, edema, orthropnea Respiratory: ABSENT: cough, dyspnea Gastrointestinal: PRESENT: abdominal pain, diarrhea, nausea Genitourinary: ABSENT: dysuria, hematuria Musculoskeletal: ABSENT: deformity, joint swelling Neurological: ABSENT: dizziness, focal weakness Psychiatric: ABSENT: anxiety, depression Physical Exam Vital Signs: Temp Pulse Resp BP Pulse Ox 46 L 28 H 125/80 98 06/20/17 10:48 06/20/17 15:23 06/20/17 15:23 06/20/17 15:23 General appearance: PRESENT: no acute distress, obese Head exam: PRESENT: atraumatic, normocephalic Eye exam: PRESENT: conjunctiva pink, EOMI, PERRLA Ear exam: PRESENT: normal external ear exam Mouth exam: PRESENT: moist, neck supple Neck exam: PRESENT: full ROM. ABSENT: JVD, lymphadenopathy, tenderness, thyromegaly Respiratory exam: PRESENT: clear to auscultation bam Cardiovascular exam: PRESENT: RRR. ABSENT: diastolic murmur, systolic murmur Vascular exam: PRESENT: normal capillary refill GI/Abdominal exam: PRESENT: guarding, hypoactive bowel sounds, tenderness - Left lower quadrant Rectal exam: PRESENT: deferred Extremities exam: PRESENT: full ROM. ABSENT: joint swelling, pedal edema Musculoskeletal exam: PRESENT: ambulatory Neurological exam: PRESENT: alert, awake, oriented to person, oriented to place , oriented to time, oriented to situation, CN II-XII grossly intact Psychiatric exam: PRESENT: appropriate affect, normal mood Skin exam: PRESENT: intact, normal color Results Impressions: Abdomen/Pelvis CT 06/20/17 00:00 IMPRESSION: 1. Diverticulitis involving the lower descending colon. No abscess. No free air. Assessment & Plan - Diagnosis (1) Diverticulitis Is this a current diagnosis for this admission?: Yes Plan: To keep on clear liquids, zosyn IV, intravenous fluids and pain management. (2) Chronic pain Qualifiers: Chronic pain type: chronic pain syndrome Qualified Code(s): G89.4 - Chronic pain syndrome Is this a current diagnosis for this admission?: Yes Plan: Pain management (3) Diabetes mellitus Qualifiers: Diabetes mellitus type: type 2 Diabetes mellitus complication status: without complication Diabetes mellitus alf insulin use: without alf use Qualified Code(s): E11.9 - Type 2 diabetes mellitus without complications Is this a current diagnosis for this admission?: Yes (4) Hypertension Qualifiers: Hypertension type: essential hypertension Qualified Code(s): I10 - Essential (primary) hypertension Is this a current diagnosis for this admission?: Yes Plan: Continue outpatient regimen (5) Hypokalemia Is this a current diagnosis for this admission?: Yes Plan: Replace IV and trend - Time Time Spent: 50 to 70 Minutes Medications reviewed and adjusted accordingly: Yes Anticipated discharge: Home Within: within 48 hours - Inpatient Certification Based on my medical assessment, after consideration of the patient's comorbidities, presenting symptoms, or acuity I expect that the services needed warrant INPATIENT care.: Yes I certify that my determination is in accordance with my understanding of Medicare's requirements for reasonable and necessary INPATIENT services [42 CFR 412.3e].: Yes Medical Necessity: Need Close Monitoring Due to Risk of Patient Decompensation, Need for Pain Control, Need for IV Antibiotics
--- NOTE | 2017-06-20 18:55 | EKG REPORT ---
SEVERITY:- BORDERLINE ECG - SINUS RHYTHM EARLY TRANSITION. : Confirmed by: Tyrone Fraser MD 20-Jun-2017 18:55:02
[2017-06-20] MEDS ORDERED: INFLUENZA ADLT QUAD (36MOS+) 2017-18 VAC 0.5 ML SYR IM PRN (20:10)
[2017-06-20] MEDS: HEPARIN SOD (PORCINE) 5,000 UNIT/ML 1 ML SYRINGE SUBCUT SCH (22:20)
[2017-06-21] MEDS: POTASSI CL 40 MEQ/NS 1L 1,000 ML IV PRN ×3 (04:36→23:42)
[2017-06-21] MEDS: PIPERACILLIN SODIUM/TAZOBACTAM 3.375 GM in NORMAL SALINE 100 ML IV SCH ×3 (06:03→18:18)
[2017-06-21] MEDS: HEPARIN SOD (PORCINE) 5,000 UNIT/ML 1 ML SYRINGE SUBCUT SCH ×3 (06:03→21:30)
[2017-06-21 06:07] LABS: ABSOLUTE EOSINOPHILS # (AUTO) 0.2 10^3/uL (0.0-0.6); ABSOLUTE LYMPHOCYTES (AUTO) 2.1 10^3/uL (0.5-4.7); ABSOLUTE MONOCYTES (AUTO) 0.5 10^3/uL (0.1-1.4); ABSOLUTE NEUT (AUTO) 4.2 10^3/uL (1.7-8.2); BASOPHILS % (AUTO) 0.5 % (0-2); EOSINOPHILS % (AUTO) 2.6 % (0-6); HEMATOCRIT 36.6 % (37.9-51.0); HEMOGLOBIN 12.4 g/dL (13.5-17.0); LYMPHOCYTES % (AUTO) 30.2 % (13-45); MEAN CORPUSCULAR HEMOGLOBIN 30.3 pg (27.0-33.4); MEAN CORPUSCULAR HGB CONC 33.9 g/dL (32.0-36.0); MEAN CORPUSCULAR VOLUME 89 fl (80-97); PLATELET COUNT 144 10^3/uL (150-450); RED CELL DISTRIBUTION WIDTH 13.5 % (11.5-14.0); SEGMENTED NEUTROPHILS % (AUTO) 59.7 % (42-78); TOTAL CELLS COUNTED % (AUTO) 100 %
[2017-06-21 06:31] LABS: ANION GAP 11 (5-19); BLOOD UREA NITROGEN 8 mg/dL (7-20); CALCIUM 8.9 mg/dL (8.4-10.2); CARBON DIOXIDE 29 mmol/L (22-30); CHLORIDE 102 mmol/L (98-107); GLUCOSE 137 mg/dL (75-110); MAGNESIUM 1.8 mg/dL (1.6-2.3); POTASSIUM 3.8 mmol/L (3.6-5.0); SODIUM 141.5 mmol/L (137-145)
--- NOTE | 2017-06-21 15:59 | PDOC PROGRESS REPORT ---
Subjective Progress Note for:: 06/21/17 Subjective:: Patient relates that pain is better and that he started to feel hungry. Nurse reports several diarrheal movements Review of systems All organ systems evaluated and negative except as in subjective All laboratories and significant diagnostics have been reviewed Reason For Visit: ACUTE DIVERTICULITIS HYPOKALEMIA Physical Exam Vital Signs: Temp Pulse Resp BP Pulse Ox 98.9 F 69 18 121/64 95 06/21/17 08:08 06/21/17 08:08 06/21/17 08:08 06/21/17 08:08 06/21/17 08:08 Intake & Output 06/20/17 06/21/17 06/22/17 06:59 06:59 06:59 Intake Total 1561 Output Total 675 Balance 886 Weight 92.7 kg General appearance: PRESENT: no acute distress, cooperative, obese Head exam: PRESENT: atraumatic, normocephalic Eye exam: PRESENT: conjunctiva pink, EOMI, PERRLA Mouth exam: PRESENT: moist Neck exam: PRESENT: full ROM, tenderness. ABSENT: JVD, lymphadenopathy Respiratory exam: PRESENT: clear to auscultation bam Cardiovascular exam: PRESENT: RRR. ABSENT: diastolic murmur, systolic murmur Vascular exam: PRESENT: normal capillary refill GI/Abdominal exam: PRESENT: normal bowel sounds, soft. ABSENT: tenderness Extremities exam: PRESENT: full ROM Musculoskeletal exam: PRESENT: ambulatory, full ROM Neurological exam: PRESENT: alert, awake, oriented to person, oriented to place , oriented to time, CN II-XII grossly intact Psychiatric exam: PRESENT: appropriate affect, normal mood Skin exam: PRESENT: intact, normal color Results Laboratory Results: 06/21/17 05:31 06/21/17 05:31 06/21/17 06/21/17 05:31 05:31 WBC 7.0 RBC 4.10 L Hgb 12.4 L Hct 36.6 L MCV 89 MCH 30.3 MCHC 33.9 RDW 13.5 Plt Count 144 L Seg Neutrophils % 59.7 Lymphocytes % 30.2 Monocytes % 7.0 Eosinophils % 2.6 Basophils % 0.5 Absolute Neutrophils 4.2 Absolute Lymphocytes 2.1 Absolute Monocytes 0.5 Absolute Eosinophils 0.2 Absolute Basophils 0.0 Sodium 141.5 Potassium 3.8 Chloride 102 Carbon Dioxide 29 Anion Gap 11 BUN 8 Creatinine 0.69 Est GFR ( Amer) > 60 Est GFR (Non-Af Amer) > 60 Glucose 137 H Calcium 8.9 Magnesium 1.8 Impressions: Abdomen/Pelvis CT 06/20/17 00:00 IMPRESSION: 1. Diverticulitis involving the lower descending colon. No abscess. No free air. Assessment & Plan - Diagnosis (1) Diverticulitis Is this a current diagnosis for this admission?: Yes Plan: Continue zosyn IV, intravenous fluids and pain management. Advance diet as tolerated (2) Chronic pain Qualifiers: Chronic pain type: chronic pain syndrome Qualified Code(s): G89.4 - Chronic pain syndrome Is this a current diagnosis for this admission?: Yes Plan: Pain management (3) Diabetes mellitus Qualifiers: Diabetes mellitus type: type 2 Diabetes mellitus complication status: without complication Diabetes mellitus residential insulin use: without residential use Qualified Code(s): E11.9 - Type 2 diabetes mellitus without complications Is this a current diagnosis for this admission?: Yes Plan: Continue present treatment (4) Hypertension Qualifiers: Hypertension type: essential hypertension Qualified Code(s): I10 - Essential (primary) hypertension Is this a current diagnosis for this admission?: Yes Plan: Continue outpatient regimen (5) Hypokalemia Is this a current diagnosis for this admission?: Yes Plan: Replaced - Time Time Spent with patient: 15-24 minutes Medications reviewed and adjusted accordingly: Yes Anticipated discharge: Home Within: within 24 hours - Inpatient Certification Based on my medical assessment, after consideration of the patient's comorbidities, presenting symptoms, or acuity I expect that the services needed warrant INPATIENT care.: Yes I certify that my determination is in accordance with my understanding of Medicare's requirements for reasonable and necessary INPATIENT services [42 CFR 412.3e].: Yes Medical Necessity: Need Close Monitoring Due to Risk of Patient Decompensation
[2017-06-21] MEDS ORDERED: BUPRENORPHINE 10 MCG TD SCH (17:00)
[2017-06-21] MEDS: GABAPENTIN 300 MG CAPSULE PO SCH (21:30)
[2017-06-21] MEDS: DULOXETINE HCL 30 MG CAPSULE.DR PO SCH (21:31)
[2017-06-21] MEDS ORDERED: ATORVASTATIN CALCIUM 10 MG TABLET PO SCH (22:00)
[2017-06-21] MEDS ORDERED: TRAZODONE HCL 50 MG TABLET PO SCH (22:00)
[2017-06-22] MEDS: PIPERACILLIN SODIUM/TAZOBACTAM 3.375 GM in NORMAL SALINE 100 ML IV SCH ×2 (00:59→05:34)
[2017-06-22] MEDS: HEPARIN SOD (PORCINE) 5,000 UNIT/ML 1 ML SYRINGE SUBCUT SCH (05:34)
[2017-06-22] MEDS: POTASSI CL 40 MEQ/NS 1L 1,000 ML IV PRN (08:30)
[2017-06-22] MEDS: GABAPENTIN 300 MG CAPSULE PO SCH (09:41)
[2017-06-22] MEDS: DULOXETINE HCL 30 MG CAPSULE.DR PO SCH (09:42)
[2017-06-22] MEDS ORDERED: METOPROLOL SUCCINATE 50 MG TAB.SR.24H PO SCH (10:00)
[2017-06-22] MEDS ORDERED: ASPIRIN 81 MG TABLET, ENT COATED PO SCH (10:00)
[2017-06-22] MEDS ORDERED: (PENDING PHARMACY ID) (Lisinopril [Prinivil 2.5 Mg Tablet] 2.5 MG) PO SCH (10:00)
[2017-06-22] MEDS ORDERED: LISINOPRIL 5 MG TABLET PO SCH (10:00)
[2017-06-22 12:56] VITALS: BP 111/70
--- NOTE | 2017-06-22 15:28 | PDOC DISCHARGE SUMMARY ---
General - Admit/Disc Date/PCP Admission Date/Primary Care Provider: 06/20/17 16:10 DIANNA HEBERT MD Discharge Date: 06/22/17 - Discharge Diagnosis (1) Diverticulitis Is this a current diagnosis for this admission?: Yes (2) Hypokalemia Is this a current diagnosis for this admission?: Yes (3) Chronic pain Is this a current diagnosis for this admission?: Yes (4) Diabetes mellitus Is this a current diagnosis for this admission?: Yes (5) Hypertension Is this a current diagnosis for this admission?: Yes (6) Confusion and disorientation Is this a current diagnosis for this admission?: Yes (7) Diarrhea Is this a current diagnosis for this admission?: Yes - Additional Information Discharge Diet: Diabetic Discharge Activity: Activity As Tolerated Prescriptions: Levofloxacin [Levaquin 500 mg Tablet] 500 mg PO DAILY #10 tablet Metronidazole [Flagyl 500 mg Tablet] 500 mg PO TID #30 tablet Home Medications: Aspirin [Aspirin EC] 81 mg PO DAILY 06/20/17 Atorvastatin Calcium [Lipitor 10 mg Tablet] 10 mg PO QHS 06/20/17 Buprenorphine [Butrans] 10 mcg TD FR@1000 06/20/17 Duloxetine HCl [Cymbalta] 60 mg PO Q12 06/20/17 Gabapentin [Neurontin 300 mg Capsule] 300 mg PO Q12 06/20/17 Hydrocodone Bit/Acetaminophen [Hydrocodon-Acetaminophen 5-325] 1 each PO Q12 06/06 Lisinopril [Prinivil 2.5 mg Tablet] 2.5 mg PO DAILY 06/20/17 Metformin HCl [Metformin HCl ER] 500 mg PO WSUPPER 06/20/17 Metoprolol Succinate [Toprol Xl 50 mg Tab.sr] 50 mg PO DAILY 06/20/17 Pantoprazole Sodium [Protonix] 40 mg PO DAILY 06/20/17 Trazodone HCl [Desyrel 50 mg Tablet] 100 mg PO QHS 06/20/17 Levofloxacin [Levaquin 500 mg Tablet] 500 mg PO DAILY #10 tablet 06/22/17 Metronidazole [Flagyl 500 mg Tablet] 500 mg PO TID #30 tablet 06/22/17 History of Present Illness History of Present Illness: DAYRON WILEY is a 67 year old male presents to emergency room accompanied by his complaining of left-sided stomach pain for one day. He had been having watery diarrhea for 2-3 days. He denies fever or chills. He threw up only once. Accordingly he had had similar episode many years ago when he had a bout of diverticulitis which required partial colon resection. During the course of evaluation in emergency room CT scan was significant for left- sided diverticulitis and since patient was in significant amount of pain the hospitalist service was consulted and prompted to admit for further management Hospital Course Hospital Course: Patient was admitted under hospitalist service. He was placed on IV antibiotic and intravenous fluid. Patient was provided analgesia with further improvement of overall presentation. Diet was advanced as tolerated. Hypokalemia was corrected through IV supplementation. We opted to keep one more night in-house as patient appeared to be somewhat confused following his initial admission. At the time of discharge patient stated that pain had resolved. He was still having diarrhea. He was no longer confused. Since patient had achieved maximum benefit of hospitalization stay prompted to discharge under stable condition Physical Exam Vital Signs: Temp Pulse Resp BP Pulse Ox 98.6 F 84 18 131/83 H 94 06/22/17 05:33 06/22/17 05:33 06/22/17 05:33 06/22/17 05:33 06/22/17 05:33 Intake & Output 06/21/17 06/22/17 06/23/17 06:59 06:59 06:59 Intake Total 1561 4269 Output Total 675 800 Balance 886 3469 Weight 92.7 kg 99 kg General appearance: PRESENT: no acute distress, cooperative, obese Head exam: PRESENT: atraumatic, normocephalic Eye exam: PRESENT: conjunctiva pink, EOMI, PERRLA Ear exam: PRESENT: normal external ear exam Mouth exam: PRESENT: moist Neck exam: PRESENT: full ROM. ABSENT: JVD, lymphadenopathy, tenderness Respiratory exam: PRESENT: clear to auscultation bam Cardiovascular exam: PRESENT: RRR. ABSENT: diastolic murmur, systolic murmur Vascular exam: PRESENT: normal capillary refill GI/Abdominal exam: PRESENT: normal bowel sounds, soft - Minimal left lower quadrant tenderness Extremities exam: PRESENT: full ROM. ABSENT: joint swelling, pedal edema Musculoskeletal exam: PRESENT: ambulatory Neurological exam: PRESENT: alert, awake, oriented to person, oriented to place , oriented to time, oriented to situation, CN II-XII grossly intact Psychiatric exam: PRESENT: appropriate affect, normal mood Skin exam: PRESENT: intact, normal color Results Laboratory Results: 06/21/17 05:31 06/21/17 05:31 Impressions: Abdomen/Pelvis CT 06/20/17 00:00 IMPRESSION: 1. Diverticulitis involving the lower descending colon. No abscess. No free air. Plan Discharge Plan: Discharge home
[2017-06-28] MEDS ORDERED: BUPRENORPHINE 10 MCG TD SCH (10:00)
== END 2017-06-22 13:25 | disposition home or self-care (01) ==
LOC: ER 10:38 → INTOOBSV 16:10 → EH 16:10 → 3S 19:10
PROVIDERS: ADMIT Emergency Medicine; ATTEND Emergency Medicine
PROC: 3E0234Z Introduction of Serum, Toxoid and Vaccine into Muscle, Percutaneous Approach (ICD-10-PCS; principal; 2017-06-22)
DX: K57.32 Diverticulitis of large intestine without perforation or abscess without bleeding (principal); E87.6 Hypokalemia; G89.4 Chronic pain syndrome; E11.9 Type 2 diabetes mellitus without complications; I10 Essential (primary) hypertension; R41.0 Disorientation, unspecified; R19.7 Diarrhea, unspecified; I69.320 Aphasia following cerebral infarction; Z79.899 Other long term (current) drug therapy; Z79.82 Long term (current) use of aspirin; Z79.84 Long term (current) use of oral hypoglycemic drugs; Z90.49 Acquired absence of other specified parts of digestive tract; Z85.46 Personal history of malignant neoplasm of prostate; Z85.828 Personal history of other malignant neoplasm of skin; Z90.79 Acquired absence of other genital organ(s); Z89.022 Acquired absence of left finger(s); Z89.021 Acquired absence of right finger(s); Z87.442 Personal history of urinary calculi; Z98.890 Other specified postprocedural states; Z23 Encounter for immunization
CPT/HCPCS: 93005; 96376; 99285; 96374; 96375; 36415 ×2; 87040; 82962 ×3; 83690; 83735; 85025 ×2; 80048; 80053; 81001; 74177; 90686; 93010; G0378 ×2; J1644 ×3; A9270 ×9; J2270; J2405; J3480 ×3; J2543 ×3

== ENCOUNTER 2017-07-20 18:53 | Emergency (ER) | payer MEDICARE, OTHER ==
[2017-07-20] MEDS ORDERED: HYDROMORPHONE HCL 2 MG TABLET PO ONE (19:17)
[2017-07-20] MEDS ORDERED: PROMETHAZINE HCL 25 MG TABLET PO ONE (19:17)
--- NOTE | 2017-07-20 19:21 | ER Document Report ---
ED Medical Screen (RME) - General Chief Complaint: Back Pain Stated Complaint: FALL BACK PAIN Time Seen by Provider: 07/20/17 19:16 Notes: Patient is complaining of pain in the left lumbar flank region of the abdomen. He says his back has been bothering him for a couple of days, but the last 2 days he has been fine, took a couple of muscle relaxers it seemed to help. This evening, he went bowling and, from the start, the more he threw the bowling ball, worse his pain got. Has never had pain like this before. History of degenerative disc disease of the spine, but no herniated disc. Points to the left flank region as the location of his pain, not in the left buttock area. Appears to be in significant pain. TRAVEL OUTSIDE OF THE [place] IN LAST 30 DAYS: No - Related Data Allergies/Adverse Reactions: meloxicam [From [employer]] Allergy (Verified 06/20/17 11:07) Past Medical History - Past Medical History Cardiac Medical History: Reports: Hx Hypercholesterolemia, Hx Hypertension Denies: Hx Heart Attack Neurological Medical History: Reports: Hx Cerebrovascular Accident Endocrine Medical History: Reports: Hx Diabetes Mellitus Type 2 Renal/ Medical History: Reports: Hx Kidney Stones. Denies: Hx Peritoneal Dialysis Malignancy Medical History: Reports Hx Skin Cancer - Removed from the superior cranium area over a year ago GI Medical History: Reports: Hx Diverticulitis, Hx Gastroesophageal Reflux Disease Psychiatric Medical History: Reports: Hx Depression Past Surgical History: Reports: Hx Abdominal Surgery - hernia repair x2, Hx Appendectomy, Hx Bowel Surgery - colon removal, Hx Cholecystectomy, Hx Orthopedic Surgery - left knee, right 4th finger, left 1st and 2nd partial amputations, Hx Tonsillectomy, Other - Prostatectomy secondary to prostate cancer. Partial colectomy at age 19. - Immunizations Immunizations up to date: No Hx Diphtheria, Pertussis, Tetanus Vaccination: No History of Influenza Vaccine for 02/2017 - 07/2017 Season: No Physical Exam - Vital signs Vitals: Temp Pulse Resp BP Pulse Ox 98.5 F 52 L 14 152/126 H 94 07/20/17 18:58 07/20/17 18:58 07/20/17 18:58 07/20/17 18:58 07/20/17 18:58 Course - Vital Signs Vital signs: Temp Pulse Resp BP Pulse Ox 98.5 F 52 L 14 152/126 H 94 07/20/17 18:58 07/20/17 18:58 07/20/17 18:58 07/20/17 18:58 07/20/17 18:58
[2017-07-20] MEDS ORDERED: IBUPROFEN 600 MG TABLET PO ONE (21:00)
[2017-07-20] MEDS ORDERED: LIDOCAINE 5% (700 MG) TRANSDERMAL ADH..PATCH TP ONE (21:00)
--- NOTE | 2017-07-20 21:01 | ER Document Report ---
ED General - General Chief Complaint: Back Pain Stated Complaint: FALL BACK PAIN Time Seen by Provider: 07/20/17 19:16 Notes: Patient is a 67-year-old male with past medical history of chronic back and knee pain, on chronic opiate therapies who presents with acute onset of left low back pain while bowling. The patient apparently strained his left low back 3-4 days ago while playing bowling. He had been taking muscle relaxers as well as his usual buprenorphine patch and Stacy with improvement of the pain. Today patient felt well enough to go play bowling again. While throwing the ball patient states he felt his left low back spasm and twist. He states that since that time he has had severe, constant, spasming pain to the left low back. He tried a muscle relaxer without any improvement of the pain. He subsequently came to the emergency department. Nothing worsens the pain other than moving or walking. He has a history of similar back pain in the past. He denies any bowel or bladder incontinence, urinary retention, fever, focal weakness or numbness, or any other symptoms of concern. He has not seen his primary care doctor regarding today's concerns. TRAVEL OUTSIDE OF THE [place] IN LAST 30 DAYS: No - Related Data Allergies/Adverse Reactions: meloxicam [From [employer]] Allergy (Verified 07/20/17 20:58) Past Medical History - General Information source: Patient, Relative - Social History Smoking Status: Never Smoker Frequency of alcohol use: None Drug Abuse: None Lives with: Spouse/Significant other Family History: Reviewed & Not Pertinent Patient has suicidal ideation: No Patient has homicidal ideation: No - Past Medical History Cardiac Medical History: Reports: Hx Hypercholesterolemia, Hx Hypertension Denies: Hx Heart Attack Neurological Medical History: Reports: Hx Cerebrovascular Accident Endocrine Medical History: Reports: Hx Diabetes Mellitus Type 2 Renal/ Medical History: Reports: Hx Kidney Stones. Denies: Hx Peritoneal Dialysis Malignancy Medical History: Reports Hx Skin Cancer - Removed from the superior cranium area over a year ago GI Medical History: Reports: Hx Diverticulitis, Hx Gastroesophageal Reflux Disease Psychiatric Medical History: Reports: Hx Depression Past Surgical History: Reports: Hx Abdominal Surgery - hernia repair x2, Hx Appendectomy, Hx Bowel Surgery - colon removal, Hx Cholecystectomy, Hx Orthopedic Surgery - left knee, right 4th finger, left 1st and 2nd partial amputations, Hx Tonsillectomy, Other - Prostatectomy secondary to prostate cancer. Partial colectomy at age 19. - Immunizations Immunizations up to date: No Hx Diphtheria, Pertussis, Tetanus Vaccination: No Review of Systems - Review of Systems Notes: Constitutional: Negative for fever. HENT: Negative for sore throat. Eyes: Negative for visual changes. Cardiovascular: Negative for chest pain. Respiratory: Negative for shortness of breath. Gastrointestinal: Negative for abdominal pain, vomiting or diarrhea. Genitourinary: Negative for dysuria. Musculoskeletal: Positive for low back pain Skin: Negative for rash. Neurological: Negative for headaches, weakness or numbness. 10 point ROS negative except as marked above and in HPI. Physical Exam - Vital signs Vitals: Temp Pulse Resp BP Pulse Ox 98.5 F 52 L 14 152/126 H 94 07/20/17 18:58 07/20/17 18:58 07/20/17 18:58 07/20/17 18:58 07/20/17 18:58 Interpretation: Normal Notes: PHYSICAL EXAMINATION: GENERAL: Appears to be uncomfortable but no acute distress HEAD: Atraumatic, normocephalic. EYES: Pupils equal round and reactive to light, extraocular movements intact, sclera anicteric, conjunctiva are normal. ENT: nares patent, oropharynx clear without exudates. Moderately dry mucous membranes. NECK: Normal range of motion, supple without lymphadenopathy LUNGS: Breath sounds clear to auscultation bilaterally and equal. No wheezes rales or rhonchi. HEART: Regular rate and rhythm without murmurs ABDOMEN: Soft, nontender, normoactive bowel sounds. No guarding, no rebound. No masses appreciated. EXTREMITIES: Normal range of motion, no pitting or edema. No cyanosis. Back: No midline spinal tenderness, step-offs or deformities. There is spasm and pain on palpation of the paraspinous muscles on the left paralumbar spinal region NEUROLOGICAL: 5 out of 5 strength both distally and proximally bilateral lower extremities. 2+ patellar reflexes bilaterally. No clonus. Sensation grossly intact in the bilateral lower extremities. Patient is able to ambulate without difficulty. PSYCH: Normal mood, normal affect. SKIN: Warm, Dry, normal turgor, no rashes or lesions noted. Course - Re-evaluation Re-evalutation: 07/20/17 21:00 Presentation of a well appearing patient complaining of acute on chronic back pain. No rapid progression of symptoms, systemic symptoms including fevers, chills, weight loss, history of recent bacterial infection, bilateral symptoms, numbness, weakness, difficulty walking, urinary retention or bowel incontinence , personal history of cancer, immunosuppression, diabetes, known AAA, or history of IV drug use. Exam is without point tenderness over vertebral bodies , pulsatile abdominal mass, and patient has symmetric and intact lower extremity strength, sensation, and reflexes without clonus. 2+ symmetric medial malleolar and dorsalis pedis pulses Based on history and physical, I have a very low suspicion of a concerning etiology of pain including epidural compression syndrome, spinal infection, transverse myelitis, malignancy, abdominal aortic aneurysm, renal colic, acute lower extremity claudication, neurogenic claudication, ankylosing spondylitis, or other intra-abdominal process. Due to absence of concerning risk factors in history and physical as well as absence of rapidly progressive, severe, or bilateral symptoms, will defer imaging at this point. Plan to manage conservatively with outpatient analgesia, analgesia, and physical therapy. - Acetaminophen 650 q 4 + ibuprofen 600 q 6 - Continue normal daily activities as tolerated by pain - Provide with standard musculoskeletal back pain exercise instructions - Instruct to follow up with primary care provider if symptoms not improving - Provide careful return precautions and concerning symptoms to watch for. - Vital Signs Vital signs: Temp Pulse Resp BP Pulse Ox 98.2 F 72 18 112/69 94 07/20/17 21:08 07/20/17 21:08 07/20/17 21:08 07/20/17 21:08 07/20/17 21:08 Discharge - Discharge Clinical Impression: Chronic prescription opiate use Left low back pain Qualifiers: Chronicity: acute Sciatica presence: without sciatica Qualified Code(s): M54.5 - Low back pain Condition: Good Disposition: HOME, SELF-CARE Additional Instructions: You have been seen in the Emergency Department (ED) today for back pain. Your workup and exam have not shown any acute abnormalities and you are likely suffering from muscle strain or possible problems with your discs, but there is no treatment that will fix your symptoms at this time. He may take the Stacy that you already take for pain as well as ibuprofen 600 mg every 6 hours. You should also purchase a local lidocaine cream such as "aspercreme with lidocaine " and use per bottle instructions to the affected area. Apply heat to the area as often as you are able. Continue to keep active and avoid prolonged periods of bed rest. Please follow up with your doctor as soon as possible regarding today's ED visit and your back pain. Return to the ED for worsening back pain, fever, weakness or numbness of either leg, or if you develop either (1) an inability to urinate or have bowel movements, or (2) loss of your ability to control your bathroom functions (if you start having "accidents"), or if you develop other new symptoms that concern you.concern you. Referrals: DIANNA HEBERT MD [Primary Care Provider] - Follow up as needed
[2017-07-20 21:10] VITALS: BP 112/69
== END 2017-07-20 21:15 | disposition home or self-care (01) ==
LOC: ER 18:53
DX: M54.5 Low back pain (principal); X50.0XXA Overexertion from strenuous movement or load, initial encounter; Y93.54 Activity, bowling; G89.29 Other chronic pain; Z79.891 Long term (current) use of opiate analgesic; I10 Essential (primary) hypertension; E11.9 Type 2 diabetes mellitus without complications; Z88.8 Allergy status to other drugs, medicaments and biological substances
CPT/HCPCS: 99283; A9270 ×3

== ENCOUNTER 2018-01-21 11:42 | Day surgery (SDC) | payer MEDICARE, OTHER ==
[~2018-01-21 11:42] MED LIST: DIPHENHYDRAMINE HCL 50 MG/ML VIAL ONE; EPINEPHRINE INJ 1 MG/10 ML DISP.SYRIN ONE; FENTANYL CITRATE INJ/PF 100 MCG/2 ML AMPUL ONE; FLUMAZENIL INJ 0.5 MG/5 ML VIAL ONE; GLUCAGON,HUMAN RECOMB 1 MG INJ ONE; MIDAZOLAM 2 MG/2 ML INJ ONE; NALOXONE HCL INJ/PF 0.4 MG/1 ML SDV ONE; ONDANSETRON HCL INJ/PF 4 MG/2 ML SDV ONE
--- NOTE | 2018-01-21 12:30 | Operative Report ---
Operative Report DATE OF SURGERY: 01/21/18 Operative Report: The risks, benefits and alternatives of the procedure including risks of bleeding, perforation requiring surgery are explained to the patient in detail and informed consent is obtained. The patient is brought back to the endoscopy suite and placed in the left, lateral decubital position. Timeout was called. Conscious sedation medications are provided. A rectal examination is done which did not reveal any masses, tears or fissures. An Olympus videoscope was inserted into the patient's rectum. The scope was then carefully advanced all the way to the cecum. The cecum was identified by the usual anatomical landmarks including the ileocecal valve as well as the appendiceal office. Photodocumentation is obtained. The scope was then sequentially pulled back via the various segments of the colon including the ascending colon, hepatic flexure, transverse colon, splenic flexure, descending colon and finally into the rectosigmoid portions of the colon. Retroflexion maneuvers performed. PREOPERATIVE DIAGNOSIS: Change of bowel habits POSTOPERATIVE DIAGNOSIS: Right side colon Inflammation status post biopsy rule out collagenous colitis. Diverticulosis. Sigmoid polyp that was removed via snare polypectomy and retrieved. Internal hemorrhoids OPERATION: Colonoscopy with snare polypectomy. Colonoscopy with biopsy SURGEON: TREVOR CHUA ANESTHESIA: Moderate Sedation - 2 mg of Versed, 25 mcg of fentanyl. Conscious sedation monitoring time 30 minutes. TISSUE REMOVED OR ALTERED: As noted above. COMPLICATIONS: None. ESTIMATED BLOOD LOSS: None. INTRAOPERATIVE FINDINGS: As noted above. PROCEDURE: Patient tolerated the procedure well. No immediate postprocedure complications are noted. Patient discharged in good condition. Discharge date 01/21/2018. Discharge diet: Regular. Discharge activity: Regular. 2-3 week follow-up to discuss findings. 3-5 year surveillance colonoscopy. Patient is instructed call the office or proceed to the emergency room should there be any further problems or questions.
[2018-01-21 13:39] VITALS: BP 105/82
== END 2018-01-21 13:28 | disposition home or self-care (01) ==
LOC: END 11:42
PROVIDERS: ATTEND Internal Medicine Gastroenterology
DX: K52.9 Noninfective gastroenteritis and colitis, unspecified (principal); K57.30 Diverticulosis of large intestine without perforation or abscess without bleeding; K64.8 Other hemorrhoids; D12.5 Benign neoplasm of sigmoid colon; I11.0 Hypertensive heart disease with heart failure; I50.9 Heart failure, unspecified; E78.01 Familial hypercholesterolemia; M89.40 Other hypertrophic osteoarthropathy, unspecified site; E11.9 Type 2 diabetes mellitus without complications; Z86.73 Personal history of transient ischemic attack (TIA), and cerebral infarction without residual deficits; Z85.46 Personal history of malignant neoplasm of prostate; Z79.82 Long term (current) use of aspirin; Z79.899 Other long term (current) drug therapy; Z79.84 Long term (current) use of oral hypoglycemic drugs
CPT/HCPCS: 45380; 45385; 82962; 88305 ×2; J2250; J3010; J0171; J1200; J1610; J2310; J2405; J3490

== ENCOUNTER 2018-05-20 10:58 | Inpatient (IN) | payer MEDICARE, OTHER ==
[2018-05-20] MEDS ORDERED: NORMAL SALINE 1000 ML 1,000 ML IV ONE ×3 (11:32→13:58)
[2018-05-20] MEDS ORDERED: FENTANYL CITRATE INJ/PF 100 MCG/2 ML AMPUL IV ONE (11:33)
[2018-05-20] MEDS ORDERED: VANCOMYCIN HCL INJ 1000 MG VIAL IV ONE (11:33)
--- NOTE | 2018-05-20 11:39 | ER Document Report ---
ED General - General Chief Complaint: Skin Problem Stated Complaint: LEG PAIN Time Seen by Provider: 05/20/18 11:23 Mode of Arrival: Ambulatory Information source: Patient Notes: 67-year-old male with a history of basal cell skin cancer status post skin grafting done on May 07, 2018 presents the emergency department with complaints of infection to the left leg that started today. Patient states that the surgery was done at [facility] by Dr. Deleon, ENT. Patient states that this morning when he woke up he noticed the skin graft area and jennifer to the left thigh were erythematous, hot to touch, and painful. Patient states that his leg was not like this yesterday. He denies any fever, chills. Patient's not currently on any antibiotics. TRAVEL OUTSIDE OF THE [place] IN LAST 30 DAYS: No - HPI Onset: This morning Onset/Duration: Sudden Quality of pain: Dull Severity: Moderate Associated symptoms: None Exacerbated by: Denies Relieved by: Denies Similar symptoms previously: No Recently seen / treated by doctor: Yes - Related Data Allergies/Adverse Reactions: morphine Allergy (Severe, Verified 01/21/18 11:44) STOPPED BREATHING AND ALSO AMS meloxicam [From [employer]] Allergy (Verified 01/21/18 11:44) ITCHING,RASH Past Medical History - General Information source: Patient - Social History Smoking Status: Former Smoker Family History: Reviewed & Not Pertinent - Past Medical History Cardiac Medical History: Reports: Hx Hypercholesterolemia, Hx Hypertension Denies: Hx Coronary Artery Disease, Hx Heart Attack Pulmonary Medical History: Denies: Hx Asthma, Hx Bronchitis, Hx COPD, Hx Pneumonia Neurological Medical History: Reports: Hx Cerebrovascular Accident - 2016 NO WEAKNESS JUST COGNITIVE DEFICITS AT TIMES. Denies: Hx Seizures Endocrine Medical History: Reports: Hx Diabetes Mellitus Type 2 Renal/ Medical History: Reports: Hx Kidney Stones. Denies: Hx Peritoneal Dialysis Malignancy Medical History: Reports Hx Skin Cancer - Removed from the superior cranium area over a year ago GI Medical History: Reports: Hx Diverticulitis, Hx Gastroesophageal Reflux Disease Musculoskeletal Medical History: Reports Hx Arthritis Psychiatric Medical History: Reports: Hx Depression Past Surgical History: Reports: Hx Abdominal Surgery - hernia repair x2, Hx Appendectomy, Hx Bowel Surgery - colon removal, Hx Cholecystectomy, Hx Orthopedic Surgery - left knee, right 4th finger, left 1st and 2nd partial amputations, Hx Tonsillectomy, Other - Prostatectomy secondary to prostate cancer. Partial colectomy at age 19. - Immunizations Immunizations up to date: No Hx Diphtheria, Pertussis, Tetanus Vaccination: No Review of Systems - Review of Systems Constitutional: No symptoms reported EENT: No symptoms reported Cardiovascular: No symptoms reported Respiratory: No symptoms reported Gastrointestinal: No symptoms reported Musculoskeletal: Muscle pain Skin: Change in color Hematologic/Lymphatic: No symptoms reported Neurological/Psychological: No symptoms reported -: Yes All other systems reviewed and negative Physical Exam - Vital signs Vitals: Temp Pulse Resp BP Pulse Ox 97.7 F 144 H 16 129/81 H 87 L 05/20/18 11:03 05/20/18 11:03 05/20/18 11:03 05/20/18 11:03 05/20/18 11:03 - Notes Notes: PHYSICAL EXAMINATION: GENERAL: Well-appearing, well-nourished and in no acute distress. HEAD: Atraumatic, normocephalic. EYES: Pupils equal round and reactive to light, extraocular movements intact, sclera anicteric, conjunctiva are normal. ENT: Nares patent, oropharynx clear without exudates. Moist mucous membranes. Skin graft to the right side of the face/head is healing well. Jennifer are clean, dry, intact. NECK: Normal range of motion, supple without lymphadenopathy LUNGS: Breath sounds clear to auscultation bilaterally and equal. No wheezes rales or rhonchi. HEART: Regular rate and rhythm without murmurs ABDOMEN: Soft, nontender, nondistended abdomen. No guarding, no rebound. No masses appreciated. Musculoskeletal: Normal range of motion, no pitting or edema. No cyanosis. Incision site and jennifer to the Left thigh are erythematous, edematous, warm to touch. No purulent drainage appreciated. NEUROLOGICAL: Cranial nerves grossly intact. Normal speech, normal gait. Normal sensory, motor exams PSYCH: Normal mood, normal affect. SKIN: Warm, Cellulitis to the Left thigh. Course - Re-evaluation Re-evalutation: 05/20/18 11:52 EKG: Ventricular rate 83, NV interval 188, QRS duration 96, QTc 442, normal sinus rhythm. No ST segment elevation. No ST segment depression. EKG is similar to previous EKG done on 06/20/17. 05/20/18 14:22 Initial heart rate charted to be 144. In the room his pulse has been within normal limits. I don't think the initial heart rate documented was accurate. Also had a low blood pressure that I do not feel was accurate. Patient's WBC is 13. His lactic acid is elevated at 3. I contacted ENT cone operator at [facility], Dr. Lr. She contacted the patient's ENT, Dr. Deleon. She discussed the case with him. They feel that unless there is concern for an underlying abscess that the patient can be managed for the cellulitis without transfer. The patient has an appointment scheduled for Saturday with Dr. Deleon. I discussed options with the patient. They prefer to stay at this hospital if possible as there's no guarantee that they will be admitted once they reach [facility]. There is the possibility that they're discharged home on PO antibiotics. I spoke with the hospitalist, Dr. Shepherd. He feels the patient can receive inpatient antibiotics with discharge home to follow-up with Dr. Deleon outpatient on Saturday. - Vital Signs Vital signs: Temp Pulse Resp BP Pulse Ox 97.7 F 144 H 23 H 136/98 H 95 05/20/18 11:03 05/20/18 11:03 05/20/18 16:01 05/20/18 16:12 05/20/18 16:01 - Laboratory Result Diagrams: 05/20/18 11:35 05/20/18 11:35 Laboratory results interpreted by me: 05/20/18 05/20/18 05/20/18 11:35 11:35 11:35 WBC 13.1 H RBC 3.30 L Hgb 9.5 L Hct 28.7 L RDW 14.2 H Eosinophils % 6.1 H Absolute Neutrophils 9.4 H Absolute Eosinophils 0.8 H Glucose 192 H Lactic Acid 3.0 H ALT 9 L Discharge - Discharge Clinical Impression: Cellulitis Qualifiers: Site of cellulitis: extremity Site of cellulitis of extremity: lower extremity Laterality: left Qualified Code(s): L03.116 - Cellulitis of left lower limb Condition: Stable Disposition: ADMITTED OBSERVATION Admitting Provider: Hospitalist Unit Admitted: Medical Floor
[2018-05-20 11:59] LABS: ABSOLUTE BASOPHILS # (AUTO) 0.2 10^3/uL (0.0-0.2); ABSOLUTE EOSINOPHILS # (AUTO) 0.8 10^3/uL (0.0-0.6); ABSOLUTE LYMPHOCYTES (AUTO) 2.1 10^3/uL (0.5-4.7); ABSOLUTE MONOCYTES (AUTO) 0.6 10^3/uL (0.1-1.4); ABSOLUTE NEUT (AUTO) 9.4 10^3/uL (1.7-8.2); BASOPHILS % (AUTO) 1.3 % (0-2); EOSINOPHILS % (AUTO) 6.1 % (0-6); HEMATOCRIT 28.7 % (37.9-51.0); HEMOGLOBIN 9.5 g/dL (13.5-17.0); LYMPHOCYTES % (AUTO) 16.4 % (13-45); MEAN CORPUSCULAR HEMOGLOBIN 28.9 pg (27.0-33.4); MEAN CORPUSCULAR HGB CONC 33.1 g/dL (32.0-36.0); MEAN CORPUSCULAR VOLUME 87 fl (80-97); MONOCYTES % (AUTO) 4.4 % (3-13); PLATELET COUNT 355 10^3/uL (150-450); RED CELL DISTRIBUTION WIDTH 14.2 % (11.5-14.0); SEGMENTED NEUTROPHILS % (AUTO) 71.8 % (42-78); TOTAL CELLS COUNTED % (AUTO) 100 %; WHITE BLOOD COUNT 13.1 10^3/uL (4.0-10.5)
[2018-05-20 12:05] LABS: INTERNATIONAL RATION (INR) 0.96; PROTHROMBIN TIME 13.3 SEC (11.4-15.4)
[2018-05-20 12:27] LABS: ALANINE AMINOTRANSFERASE 9 U/L (21-72); ALBUMIN 4.2 g/dL (3.5-5.0); ALKALINE PHOSPHATASE 84 U/L (38-126); ANION GAP 12 (5-19); ASPARTATE AMINO TRANSFERASE 36 U/L (17-59); BILIRUBIN,DIRECT 0.3 mg/dL (0.0-0.4); BILIRUBIN,TOTAL 0.7 mg/dL (0.2-1.3); BLOOD UREA NITROGEN 15 mg/dL (7-20); CALCIUM 9.4 mg/dL (8.4-10.2); CARBON DIOXIDE 29 mmol/L (22-30); CHLORIDE 99 mmol/L (98-107); GLUCOSE 192 mg/dL (75-110); POTASSIUM 4.3 mmol/L (3.6-5.0); SODIUM 139.7 mmol/L (137-145); TOTAL PROTEIN 7.6 g/dL (6.3-8.2)
--- NOTE | 2018-05-20 14:20 | EKG REPORT ---
SEVERITY:- NORMAL ECG - SINUS RHYTHM : Confirmed by: Makayla Garcia MD 20-May-2018 14:19:48
[2018-05-20] MEDS ORDERED: DEXTROSE 40% GEL 15 GM TUBE PO PRN ×2 (15:32)
[2018-05-20] MEDS ORDERED: GLUCAGON,HUMAN RECOMB 1 MG INJ IM PRN (15:32)
[2018-05-20] MEDS ORDERED: INSULIN LISPRO 100 UNIT/ML 3 ML VIAL SUBCUT PRN (15:32)
[2018-05-20] MEDS ORDERED: DEXTROSE 50%-WATER 25 GM/50 ML DISP.SYRIN IV PRN ×2 (15:32)
[2018-05-20] MEDS ORDERED: ALBUTEROL SULFATE 0.083% NEB 2.5 MG/3 ML AMPUL NEB PRN (15:33)
[2018-05-20] MEDS ORDERED: MAGNESIUM HYDROXIDE SUSP 30 ML UDCUP PO PRN (15:33)
[2018-05-20] MEDS ORDERED: MAG HYDROX/AL HYDROX/SIMETH SUSP 30 ML UDCUP PO PRN (15:33)
[2018-05-20] MEDS ORDERED: ACETAMINOPHEN 325 MG TABLET PO PRN (15:33)
[2018-05-20] MEDS ORDERED: ONDANSETRON HCL INJ/PF 4 MG/2 ML SDV IV PRN (15:33)
[2018-05-20] MEDS ORDERED: NORMAL SALINE 1000 ML 1,000 ML IV PRN (15:33)
[2018-05-20] MEDS ORDERED: VANCOMYCIN HCL 0 MG in DEXTROSE 5%-WATER 250 ML IV NR (15:45)
[2018-05-20] MEDS ORDERED: TRAZODONE HCL 50 MG TABLET PO PRN (18:11)
--- NOTE | 2018-05-20 18:28 | PDOC H&P ---
History of Present Illness Admission Date/PCP: 05/20/18 15:33 DIANNA HEBERT MD Patient complains of: Donor graft site infection History of Present Illness: DAYRON WILEY is a 67 year old male with a past medical history of CVA, hypertension, hyperlipidemia, DM 2, and basal cell skin cancers status post skin grafting at [facility] 05/07/2018 who presented to the emergency department today with a complaint of increased erythema, edema, tenderness to the donor graft site on his left anterior thigh. The patient's spouse reports that she noted slight erythema to the wound edges 2 days ago without edema or drainage. Today she noted that the erythema had increased in intensity and size, now with increased edema and purulent drainage from the sutures to the medial portion of the graft site. Evaluation in the emergency department revealed leukocytosis (WBCs 13.1), anemia (hemoglobin 9.5; down from a baseline of 12.4), and unremarkable chemistry, elevated lactic acid (3.0; decreased to 1.5 following IV fluid bolus times 3 L), and normal vital signs. [facility] was contacted by the emergency department provider who recommended IV antibiotics and to follow-up in their clinic as scheduled on Saturday. He was referred to the hospitalist service for the above-mentioned complaints. Past Medical History Cardiac Medical History: Reports: Hyperlipidema, Hypertension Denies: Coronary Artery Disease, Myocardial Infarction Pulmonary Medical History: Denies: Asthma, Chronic Obstructive Pulmonary Disease (COPD) EENT Medical History: Reports: None Neurological Medical History: Reports: Ischemic CVA Denies: Seizures Endocrine Medical History: Reports: Diabetes Mellitus Type 2 Renal/ Medical History: Reports: None Malignancy Medical History: Reports: Skin Cancer - Removed from the superior cranium area over a year ago GI Medical History: Reports: Diverticulitis, Gastroesophageal Reflux Disease Musculoskeltal Medical History: Reports: Arthritis Skin Medical History: Reports: None Psychiatric Medical History: Reports: Depression Traumatic Medical History: Reports: None Hematology: Reports: Anemia Infectious Medical History: Reports: None Past Surgical History Past Surgical History: Reports: Appendectomy, Cholecystectomy, Orthopedic Asencio rgery - left knee, right 4th finger, left 1st and 2nd partial amputations, Tonsillectomy, Other - Prostatectomy secondary to prostate cancer. Partial colectomy at age 19. Social History Information Source: Patient Lives with: Family Smoking Status: Former Smoker Frequency of Alcohol Use: None Hx Recreational Drug Use: No Drugs: None Hx Prescription Drug Abuse: No - Advance Directive Resuscitation Status: Full Code Surrogate healthcare decision maker:: The patient's , Joann Wiley Family History Family History: Reviewed & Not Pertinent Parental Family History Reviewed: Yes Children Family History Reviewed: Yes Sibling(s) Family History Reviewed.: Yes Medication/Allergy Home Medications: Aspirin [Adult Low Dose Aspirin EC] 81 mg PO QAM 05/20/18 Atorvastatin Calcium [Lipitor 10 mg Tablet] 10 mg PO QPM 05/20/18 Buprenorphine [Butrans] 1 patch TD FR 05/20/18 Duloxetine HCl [Cymbalta] 60 mg PO Q12 05/20/18 Gabapentin [Neurontin 300 mg Capsule] 300 mg PO Q12 05/20/18 Lisinopril [Zestril] 2.5 mg PO QAM 05/20/18 Metformin HCl [Glucophage 500 mg Tablet] 500 mg PO QPM 05/20/18 Metoprolol Succinate [Toprol Xl 50 mg Tab.sr] 50 mg PO QAM 05/20/18 Pantoprazole Sodium [Protonix] 40 mg PO QAM 05/20/18 Trazodone HCl [Desyrel] 100 mg PO HSP PRN 05/20/18 Allergies/Adverse Reactions: morphine Allergy (Severe, Verified 01/21/18 11:44) STOPPED BREATHING AND ALSO AMS meloxicam [From Mobic] Allergy (Verified 01/21/18 11:44) ITCHING,RASH Review of Systems Constitutional: ABSENT: chills, fever(s), headache(s), weight gain, weight loss Eyes: ABSENT: visual disturbances Ears: ABSENT: hearing changes Cardiovascular: ABSENT: chest pain, dyspnea on exertion, edema, orthropnea, palpitations Respiratory: ABSENT: cough, hemoptysis Gastrointestinal: ABSENT: abdominal pain, constipation, diarrhea, hematemesis, hematochezia, nausea, vomiting Genitourinary: ABSENT: dysuria, hematuria Musculoskeletal: ABSENT: joint swelling Integumentary: PRESENT: as per HPI Neurological: ABSENT: abnormal gait, abnormal speech, confusion, dizziness, focal weakness, syncope Psychiatric: ABSENT: anxiety, depression, homidical ideation, suicidal ideation Endocrine: ABSENT: cold intolerance, heat intolerance, polydipsia, polyuria Hematologic/Lymphatic: ABSENT: easy bleeding, easy bruising Physical Exam Vital Signs: Temp Pulse Resp BP Pulse Ox 97.7 F 144 H 23 H 136/98 H 95 05/20/18 11:03 05/20/18 11:03 05/20/18 16:01 05/20/18 16:12 05/20/18 16:01 Intake & Output 05/19/18 05/20/18 05/21/18 06:59 06:59 06:59 Intake Total 1000 Balance 1000 Weight 95.7 kg General appearance: PRESENT: no acute distress, cooperative, hard of hearing, well-developed, well-nourished Head exam: PRESENT: atraumatic, normocephalic Eye exam: PRESENT: conjunctiva pink, EOMI, PERRLA. ABSENT: scleral icterus Ear exam: PRESENT: other - Recent amputation of right ear with skin graft to right temporal/maxillary region effaced; surgical incision extends down the right lateral neck; well approximated with sutures/jennifer. No erythema or drainage present. Mouth exam: PRESENT: moist, tongue midline Neck exam: PRESENT: full ROM. ABSENT: carotid bruit, JVD, lymphadenopathy, thyromegaly Respiratory exam: PRESENT: clear to auscultation bam, symmetrical, unlabored. ABSENT: rales, rhonchi, wheezes Cardiovascular exam: PRESENT: RRR, +S1, +S2. ABSENT: diastolic murmur, rubs, systolic murmur Pulses: PRESENT: normal dorsalis pedis pul Vascular exam: PRESENT: normal capillary refill GI/Abdominal exam: PRESENT: normal bowel sounds, soft. ABSENT: distended, guarding, mass, organolmegaly, rebound, tenderness Rectal exam: PRESENT: deferred Extremities exam: PRESENT: full ROM. ABSENT: calf tenderness, clubbing, pedal edema Neurological exam: PRESENT: alert, awake, oriented to person, oriented to place, oriented to time, oriented to situation, CN II-XII grossly intact, other - Intermittent forgetfulness/confusion secondary to historic CVA. ABSENT: motor sensory deficit Psychiatric exam: PRESENT: appropriate affect, normal mood. ABSENT: homicidal ideation, suicidal ideation Skin exam: PRESENT: dry, erythema - Donor graft site to left anterior thigh. Wound is well approximated with jennifer proximally and distally to the graft site; no erythema or drainage present. Clear film is sutured to the graft site; 1-2 cm border of erythema. Edema to graft site. Purulent fluid drainage noted to medial sutures. Tender to touch., warm. ABSENT: cyanosis, rash Results Laboratory Results: 05/20/18 11:35 05/20/18 11:35 05/20/18 05/20/18 05/20/18 11:35 11:35 11:35 WBC 13.1 H RBC 3.30 L Hgb 9.5 L Hct 28.7 L MCV 87 MCH 28.9 MCHC 33.1 RDW 14.2 H Plt Count 355 Seg Neutrophils % 71.8 Lymphocytes % 16.4 Monocytes % 4.4 Eosinophils % 6.1 H Basophils % 1.3 Absolute Neutrophils 9.4 H Absolute Lymphocytes 2.1 Absolute Monocytes 0.6 Absolute Eosinophils 0.8 H Absolute Basophils 0.2 Sodium 139.7 Potassium 4.3 Chloride 99 Carbon Dioxide 29 Anion Gap 12 BUN 15 Creatinine 0.84 Est GFR ( Amer) > 60 Est GFR (Non-Af Amer) > 60 Glucose 192 H Lactic Acid 3.0 H Calcium 9.4 Total Bilirubin 0.7 AST 36 ALT 9 L Alkaline Phosphatase 84 Total Protein 7.6 Albumin 4.2 05/20/18 14:47 WBC RBC Hgb Hct MCV MCH MCHC RDW Plt Count Seg Neutrophils % Lymphocytes % Monocytes % Eosinophils % Basophils % Absolute Neutrophils Absolute Lymphocytes Absolute Monocytes Absolute Eosinophils Absolute Basophils Sodium Potassium Chloride Carbon Dioxide Anion Gap BUN Creatinine Est GFR ( Amer) Est GFR (Non-Af Amer) Glucose Lactic Acid 1.5 Calcium Total Bilirubin AST ALT Alkaline Phosphatase Total Protein Albumin 05/20/18 11:35 Troponin I < 0.012 Assessment & Plan - Diagnosis (1) Cellulitis Qualifiers: Site of cellulitis: extremity Site of cellulitis of extremity: lower extremity Laterality: left Qualified Code(s): L03.116 - Cellulitis of left lower limb Is this a current diagnosis for this admission?: Yes Plan: Cellulitis to the left anterior thigh at the donor graft site. Now with erythema, edema, and purulent drainage. WBCs are elevated to 13.1, lactic acid initially elevated to 3.0 (now resolved). Patient and family deny fever at home. Wound and blood cultures are pending. Lower extremity CT is pending; will rule out underlying abscess as there is purulent drainage. The patient is admitted to the medical floor. He is empirically placed on IV vancomycin and Zosyn; will adjust as cultures result. Consider surgical consultation. Antipyretics as needed. Elevate the extremity as able. (2) Chronic pain Qualifiers: Chronic pain type: chronic pain syndrome Qualified Code(s): G89.4 - Chronic pain syndrome Is this a current diagnosis for this admission?: Yes Plan: Unfortunately, Butrans patches are not on formulary. Patient's family will need to bring them from home. Continue home dose gabapentin. Tylenol as needed for mild discomfort or fever. Oxycodone 5/325 every 6 hours as needed for acute pain. (3) Depression Qualifiers: Depression Type: unspecified Qualified Code(s): F32.9 - Major depressive disorder, single episode, unspecified Is this a current diagnosis for this admission?: Yes Plan: Continue home dose Cymbalta twice daily and trazodone nightly. 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 Patient was placed on a consistent carb diet. Accu-Cheks before meals and at bedtime with Humalog for sliding scale coverage. (5) Hypertension Qualifiers: Hypertension type: essential hypertension Qualified Code(s): I10 - Essential (primary) hypertension Is this a current diagnosis for this admission?: Yes Plan: The patient's home medication regiment of metoprolol and lisinopril are continued. (6) Lactic acidosis Is this a current diagnosis for this admission?: Yes Plan: Resolved following IV fluid bolus. - Time Time Spent: 50 to 70 Minutes Medications reviewed and adjusted accordingly: Yes Anticipated discharge: Home - Inpatient Certification Based on my medical assessment, after consideration of the patient's comorbidities, presenting symptoms, or acuity I expect that the services needed warrant INPATIENT care.: Yes I certify that my determination is in accordance with my understanding of Medicare's requirements for reasonable and necessary INPATIENT services [42 CFR 412.3e].: Yes Medical Necessity: Need For IV Fluids, Need for IV Antibiotics, Risk of Diagnosis Which Will Require Inpatient Eval/Care/Monitoring
[2018-05-20] MEDS: PIPERACILLIN SODIUM/TAZOBACTAM 3.375 GM in NORMAL SALINE 100 ML IV SCH (18:47)
[2018-05-20] MEDS: OXYCODONE-ACETAMINOPHEN 5-325 MG TABLET PO PRN (18:48)
--- NOTE | 2018-05-20 21:34 | PDOC CONSULTATION ---
Consultation Consult Date: 05/20/18 Consult reason:: Donor site infection History of Present Illness Admission Date/PCP: 05/20/18 15:33 DIANNA HEBERT MD History of Present Illness: DAYRON WILEY is a 67 year old male Brought to the emergency department the day status post radical resection of right ear for complicated basal cell carcinoma, with reconstruction using what appears to have been a flap from the left thigh to the right side of the face, with partial primary closure of donor site with jennifer, and the remainder of the defect closed with proprietary AlloDerm. Surgery was performed 13 days ago [facility]. Patient admitted to the hospitalist service for cellulitis of the donor site. Surgery consulted for further evaluation. According to the patient he said erythema worse this morning, better this afternoon around the left thigh donor site. Patient is status post multiple split-thickness skin graft in the remote past from the right and left thighs to the scalp for previous basal cell carcinomas.. Past Medical History Cardiac Medical History: Reports: Hyperlipidema, Hypertension Denies: Coronary Artery Disease, Myocardial Infarction Pulmonary Medical History: Denies: Asthma, Bronchitis, Chronic Obstructive Pulmonary Disease (COPD), Pneumonia EENT Medical History: Reports: None Neurological Medical History: Reports: Ischemic CVA Denies: Seizures Endocrine Medical History: Reports: Diabetes Mellitus Type 2 Renal/ Medical History: Reports: None Malignancy Medical History: Reports: Skin Cancer - Removed from the superior cranium area over a year ago GI Medical History: Reports: Diverticulitis, Gastroesophageal Reflux Disease Musculoskeltal Medical History: Reports: Arthritis Skin Medical History: Reports: None Psychiatric Medical History: Reports: Depression Traumatic Medical History: Reports: None Hematology: Reports: Anemia Infectious Medical History: Reports: None Past Surgical History Past Surgical History: Extensive skin grafting from thighs to scalp; status post complex reconstruction right side of face following radical right ear resection 13 days ago [facility]. Past Surgical History: Reports: Appendectomy, Cholecystectomy, Orthopedic Surgery - left knee, right 4th finger, left 1st and 2nd partial amputations, T onsillectomy, Other - Prostatectomy secondary to prostate cancer. Partial colectomy at age 19. Social History Lives with: Family Smoking Status: Former Smoker Frequency of Alcohol Use: None Hx Recreational Drug Use: No Drugs: None Hx Prescription Drug Abuse: No - Advance Directive Resuscitation Status: Full Code Family History Family History: Reviewed & Not Pertinent Parental Family History Reviewed: Yes Children Family History Reviewed: Yes Sibling(s) Family History Reviewed.: Yes Medication/Allergy Home Medications: Aspirin [Adult Low Dose Aspirin EC] 81 mg PO QAM 05/20/18 Atorvastatin Calcium [Lipitor 10 mg Tablet] 10 mg PO QPM 05/20/18 Buprenorphine [Butrans] 1 patch TD FR 05/20/18 Duloxetine HCl [Cymbalta] 60 mg PO Q12 05/20/18 Gabapentin [Neurontin 300 mg Capsule] 300 mg PO Q12 05/20/18 Lisinopril [Zestril] 2.5 mg PO QAM 05/20/18 Metformin HCl [Glucophage 500 mg Tablet] 500 mg PO QPM 05/20/18 Metoprolol Succinate [Toprol Xl 50 mg Tab.sr] 50 mg PO QAM 05/20/18 Pantoprazole Sodium [Protonix] 40 mg PO QAM 05/20/18 Trazodone HCl [Desyrel] 100 mg PO HSP PRN 05/20/18 Allergies/Adverse Reactions: morphine Allergy (Severe, Verified 01/21/18 11:44) STOPPED BREATHING AND ALSO AMS meloxicam [From Mobic] Allergy (Verified 01/21/18 11:44) ITCHING,RASH Review of Systems Eyes: ABSENT: visual disturbances Ears: ABSENT: hearing changes Genitourinary: ABSENT: dysuria, hematuria Physical Exam Vital Signs: Temp Pulse Resp BP Pulse Ox 98.0 F 79 14 104/60 96 05/20/18 19:27 05/20/18 19:27 05/20/18 19:27 05/20/18 19:27 05/20/18 19:27 Intake & Output 05/19/18 05/20/18 05/21/18 06:59 06:59 06:59 Intake Total 1100 Balance 1100 Weight 95.7 kg General appearance: PRESENT: mild distress Head exam: PRESENT: other - Evidence of multiple skin grafts to the scalp; the right side of the face has the donor free flap secured with Ethilon sutures; there are areas of partial epidermal lysis. There is stapled primary closure of a operative incision extending down the right neck. There is no evidence of drainage foul smell or opal cellulitis. GI/Abdominal exam: PRESENT: soft Extremities exam: PRESENT: other - Left lower extremity examined. Evidence of remote skin grafting partial-thickness anterior thighs bilaterally Left thigh anteriorly has opened 6 x 12 cm donor site with bulging underlying muscle and overlying proprietary AlloDerm sutured in place; donor site is closed superiorly and inferiorly in relation to the prior Yayo graft. Minimal erythema around the jennifer. No foul smell or drainage Results Laboratory Results: 05/20/18 11:35 05/20/18 11:35 05/20/18 05/20/18 05/20/18 11:35 11:35 11:35 WBC 13.1 H RBC 3.30 L Hgb 9.5 L Hct 28.7 L MCV 87 MCH 28.9 MCHC 33.1 RDW 14.2 H Plt Count 355 Seg Neutrophils % 71.8 Lymphocytes % 16.4 Monocytes % 4.4 Eosinophils % 6.1 H Basophils % 1.3 Absolute Neutrophils 9.4 H Absolute Lymphocytes 2.1 Absolute Monocytes 0.6 Absolute Eosinophils 0.8 H Absolute Basophils 0.2 Sodium 139.7 Potassium 4.3 Chloride 99 Carbon Dioxide 29 Anion Gap 12 BUN 15 Creatinine 0.84 Est GFR ( Amer) > 60 Est GFR (Non-Af Amer) > 60 Glucose 192 H Lactic Acid 3.0 H Calcium 9.4 Total Bilirubin 0.7 AST 36 ALT 9 L Alkaline Phosphatase 84 Total Protein 7.6 Albumin 4.2 05/20/18 14:47 WBC RBC Hgb Hct MCV MCH MCHC RDW Plt Count Seg Neutrophils % Lymphocytes % Monocytes % Eosinophils % Basophils % Absolute Neutrophils Absolute Lymphocytes Absolute Monocytes Absolute Eosinophils Absolute Basophils Sodium Potassium Chloride Carbon Dioxide Anion Gap BUN Creatinine Est GFR ( Amer) Est GFR (Non-Af Amer) Glucose Lactic Acid 1.5 Calcium Total Bilirubin AST ALT Alkaline Phosphatase Total Protein Albumin 05/20/18 11:35 Troponin I < 0.012 Assessment & Plan - Diagnosis (1) Cellulitis Qualifiers: Site of cellulitis: extremity Site of cellulitis of extremity: lower ext remity Laterality: left Qualified Code(s): L03.116 - Cellulitis of left lower limb Is this a current diagnosis for this admission?: Yes Plan: Impression: Patient is 13 days status post radical resection of right ear for skin cancer, with reconstruction using free flap from left anterior thigh; thigh donor site closed partially primarily, then with proprietary AlloDerm; mild cellulitic changes evidence of threatened donor site, drainage, or underlying infection; suspect bulging due to underlying muscle Recommendations: 1. No indication for surgical intervention; recipient free flap is viable with some mild areas of partial epidermal lysis; these areas will declare themselves; no indication for debridement at this time 2. Donor site has some mild erythematous changes at the primary closure site as well as around the proprietary tissue graft. Agree with intravenous gram- positive antibiotic coverage ; We will start patient on gentle dressing changes which I reviewed staff. 3. Reconsult surgery if needed. (2) Chronic pain Qualifiers: Chronic pain type: chronic pain syndrome Qualified Code(s): G89.4 - Chronic pain syndrome Is this a current diagnosis for this admission?: Yes
[2018-05-20] MEDS: DULOXETINE HCL 30 MG CAPSULE.DR PO SCH (22:50)
[2018-05-20] MEDS: GABAPENTIN 300 MG CAPSULE PO SCH (22:50)
[2018-05-20] MEDS: FAMOTIDINE 20 MG TABLET PO SCH (22:50)
[2018-05-20] MEDS: HEPARIN SOD (PORCINE) 5,000 UNIT/ML 1 ML SYRINGE SUBCUT SCH (22:52)
[2018-05-20] MEDS: VANCOMYCIN HCL 1,250 MG in DEXTROSE 5%-WATER 250 ML IV SCH (22:55)
[2018-05-21] MEDS: PIPERACILLIN SODIUM/TAZOBACTAM 3.375 GM in NORMAL SALINE 100 ML IV SCH ×4 (00:54→17:25)
[2018-05-21] MEDS: OXYCODONE-ACETAMINOPHEN 5-325 MG TABLET PO PRN ×2 (00:57→13:24)
[2018-05-21] MEDS: HEPARIN SOD (PORCINE) 5,000 UNIT/ML 1 ML SYRINGE SUBCUT SCH ×3 (05:35→21:51)
[2018-05-21] MEDS: VANCOMYCIN HCL 1,250 MG in DEXTROSE 5%-WATER 250 ML IV SCH ×2 (06:11→14:08)
[2018-05-21] MEDS: ASPIRIN 81 MG TABLET, ENT COATED PO SCH (09:16)
[2018-05-21] MEDS: LISINOPRIL 5 MG TABLET PO SCH (09:16)
[2018-05-21] MEDS: FAMOTIDINE 20 MG TABLET PO SCH ×2 (09:17→21:51)
[2018-05-21] MEDS: GABAPENTIN 300 MG CAPSULE PO SCH ×2 (09:17→21:51)
[2018-05-21] MEDS: METOPROLOL SUCCINATE 50 MG TAB.SR.24H PO SCH (09:17)
[2018-05-21] MEDS: DOCUSATE SODIUM 100 MG CAPSULE PO SCH (09:17)
[2018-05-21] MEDS: DULOXETINE HCL 30 MG CAPSULE.DR PO SCH ×2 (09:17→21:51)
[2018-05-21 09:49] LABS: ABSOLUTE BASOPHILS # (AUTO) 0.1 10^3/uL (0.0-0.2); ABSOLUTE EOSINOPHILS # (AUTO) 0.5 10^3/uL (0.0-0.6); ABSOLUTE LYMPHOCYTES (AUTO) 1.7 10^3/uL (0.5-4.7); ABSOLUTE MONOCYTES (AUTO) 0.4 10^3/uL (0.1-1.4); BASOPHILS % (AUTO) 1.1 % (0-2); EOSINOPHILS % (AUTO) 7.4 % (0-6); HEMATOCRIT 23.6 % (37.9-51.0); LYMPHOCYTES % (AUTO) 25.4 % (13-45); MEAN CORPUSCULAR HEMOGLOBIN 27.9 pg (27.0-33.4); MEAN CORPUSCULAR HGB CONC 32.6 g/dL (32.0-36.0); MEAN CORPUSCULAR VOLUME 86 fl (80-97); MONOCYTES % (AUTO) 6.6 % (3-13); PLATELET COUNT 241 10^3/uL (150-450); RED BLOOD COUNT 2.76 10^6/uL (4.35-5.55); RED CELL DISTRIBUTION WIDTH 14.3 % (11.5-14.0); SEGMENTED NEUTROPHILS % (AUTO) 59.5 % (42-78); TOTAL CELLS COUNTED % (AUTO) 100 %; WHITE BLOOD COUNT 6.7 10^3/uL (4.0-10.5)
[2018-05-21 09:52] LABS: ANION GAP 7 (5-19); BLOOD UREA NITROGEN 10 mg/dL (7-20); CALCIUM 8.9 mg/dL (8.4-10.2); CARBON DIOXIDE 27 mmol/L (22-30); CHLORIDE 104 mmol/L (98-107); GLUCOSE 144 mg/dL (75-110); POTASSIUM 4.5 mmol/L (3.6-5.0); SODIUM 138.4 mmol/L (137-145)
[2018-05-21 09:56] LABS: HEMOGLOBIN 7.7 g/dL (13.5-17.0)
[2018-05-21] MEDS ORDERED: NORMAL SALINE 1000 ML 1,000 ML IV PRN (10:11)
--- NOTE | 2018-05-21 11:30 | RADIOLOGY REPORT (SQ) ---
EXAM DESCRIPTION: CT LEFT LOWER EXTREMITY WITH COMPLETED DATE/TIME: 05/21/2018 11:10 am REASON FOR STUDY: Cellulitis skin graft donor site; ?abscess L03.116 CELLULITIS OF LEFT LOWER LIMB COMPARISON: None. TECHNIQUE: Axial imaging performed through the left femur with reformatted coronal and sagittal imag ing windowed for bone and soft tissues. Images saved to PACS. 3D IMAGING: Were 3D images as MIP, SSD, or volume rendering performed at the work station? No. All CT scanners at this facility use dose modulation, iterative reconstruction, and/or weight based d osing when appropriate to reduce radiation dose to as low as reasonably achievable (ALARA). [facility]: Dose Right [facility]: CareDose [facility]: Dose Right [facility]: Teradose 4D [facility]: PeopleJar LIMITATIONS: Artifact from the arthroplasty. RADIATION DOSE: CT Rad equipment meets quality standard of care and radiation dose reduction techniq ues were employed. CTDIvol: 9.0 mGy. DLP: 526 mGy-cm. mGy. FINDINGS: SOFT TISSUES: Subcutaneous inflammation distal thigh inferior to skin jennifer. No organiz ed fluid collection. BONES: No acute fracture. No dislocation. MINERALIZATION: Normal. OTHER: No other significant finding. IMPRESSION: Cellulitis. No evidence of abscess or osteomyelitis. TECHNICAL DOCUMENTATION: JOB ID: [id number] Quality ID # [id number]: Final reports with documentation of one or more dose reduction techniques (e.g., Au tomated exposure control, adjustment of the mA and/or kV according to patient size, use of iterative reconstruction technique) 2010 [employer]- All Rights Reserved Reading location - IP/workstation name: [facility]
[2018-05-21 13:39] LABS: ABSOLUTE BASOPHILS # (AUTO) 0.1 10^3/uL (0.0-0.2); ABSOLUTE EOSINOPHILS # (AUTO) 0.4 10^3/uL (0.0-0.6); ABSOLUTE MONOCYTES (AUTO) 0.2 10^3/uL (0.1-1.4); BASOPHILS % (AUTO) 1.3 % (0-2); HEMATOCRIT 25.3 % (37.9-51.0); HEMOGLOBIN 8.4 g/dL (13.5-17.0); LYMPHOCYTES % (AUTO) 15.1 % (13-45); MEAN CORPUSCULAR HEMOGLOBIN 28.4 pg (27.0-33.4); MEAN CORPUSCULAR VOLUME 86 fl (80-97); MONOCYTES % (AUTO) 3.5 % (3-13); PLATELET COUNT 275 10^3/uL (150-450); RED BLOOD COUNT 2.94 10^6/uL (4.35-5.55); RED CELL DISTRIBUTION WIDTH 14.6 % (11.5-14.0); SEGMENTED NEUTROPHILS % (AUTO) 74.1 % (42-78); TOTAL CELLS COUNTED % (AUTO) 100 %; WHITE BLOOD COUNT 6.8 10^3/uL (4.0-10.5)
--- NOTE | 2018-05-21 16:25 | PDOC PROGRESS REPORT ---
Addendum entered and electronically signed by HALEY CASTAÑEDA NP-C 05/21/18 17:32: Provider Note Provider Note: Received a call back this evening from Dr. Majano with [facility]. Dr. Ruff was able to specify that the patient underwent a right parotidectomy, right modified neck resection, Rt auriculectomy with a left anterior lateral thigh flap graft. The donor site has an Integra skin matrix sutured in place. Dr. Ruff had no specific antibiotic recommendations; deferred to our service, and did not voice an objection to early discharge if patient was stable and appeared to be clinically improving. Will discontinue IV Vancomycin and Zosyn; initiate p.o. Augmentin and Bactrim for coverage for MRSA as the patient has been in the hospital setting. Anticipate discharge home tomorrow; to follow up with surgeon, Dr. Deleon on Saturday as scheduled. Original Note: Subjective Progress Note for:: 05/21/18 Subjective:: The patient is a 67 year old male with a past medical history of CVA, hypertension, hyperlipidemia, DM 2, and basal cell skin cancers status post skin grafting at [facility] 05/07/2018 who was admitted 05/20/18 for cellulitis to the donor site. The patient was seen on morning rounds. He was found resting in bed comfortably on room air. He reports that he is feeling well today and is hopeful to be discharged to home; plans are to drive to [place] early tomorrow () to visit with family and then stay overnight for his followup appointment at [facility] on Saturday. He states that he has been ambualtory without difficulty; reports resolution to his leg discomfort and denies fever of chills. Otherwise, he further denies malaise, headache, chest pain, palpitations, dyspnea, abdominal pain, nausea and vomiting. He has no other questions or concerns today. No concerns per nursing. Reason For Visit: CELLULITIS,LACTIC ACIDOSIS Physical Exam Vital Signs: Temp Pulse Resp BP Pulse Ox 97.9 F 73 18 125/86 H 91 L 05/21/18 15:11 05/21/18 15:11 05/21/18 15:11 05/21/18 15:11 05/21/18 15:11 Intake & Output 05/20/18 05/21/18 05/22/18 06:59 06:59 06:59 Intake Total 3760 1600 Balance 3760 1600 Weight 95.8 kg General appearance: PRESENT: no acute distress, hard of hearing, well-developed, well-nourished Head exam: PRESENT: atraumatic, normocephalic Eye exam: PRESENT: conjunctiva pink, EOMI, PERRLA. ABSENT: scleral icterus Ear exam: PRESENT: other - Skin graft to right temporal/maxillary region. Surgical incision extends down the right lateral neck; well approximated with sutures/jennifer. No errythema or drainage present. Mouth exam: PRESENT: moist, tongue midline Neck exam: ABSENT: carotid bruit, JVD, lymphadenopathy, thyromegaly Respiratory exam: PRESENT: clear to auscultation bam, symmetrical, unlabored. ABSENT: rales, rhonchi, wheezes Cardiovascular exam: PRESENT: RRR, +S1, +S2. ABSENT: diastolic murmur, rubs, systolic murmur Vascular exam: PRESENT: normal capillary refill Extremities exam: PRESENT: full ROM. ABSENT: calf tenderness, clubbing, pedal edema Neurological exam: PRESENT: alert, awake, oriented to person, oriented to place, oriented to time, oriented to situation, CN II-XII grossly intact. ABSENT: motor sensory deficit Psychiatric exam: PRESENT: appropriate affect, normal mood. ABSENT: homicidal ideation, suicidal ideation Skin exam: PRESENT: dry, erythema, warm, other - Donor graft site to left anterior thigh. Wound is well approximated with jennifer proximally and distally to the graft site; now with errythema to incision. Clear film is sutured to the graft site; 2 cm border of erythema. Edema to graft site. ? Purulent fluid drainage noted to medial sutures; decreased from yesterday. Nontender.. ABSENT: cyanosis, rash Results Laboratory Results: 05/21/18 13:12 05/21/18 08:33 05/21/18 05/21/18 05/21/18 08:33 08:33 11:32 WBC 6.7 Cancelled RBC 2.76 L Cancelled Hgb 7.7 L Cancelled Hct 23.6 L Cancelled MCV 86 Cancelled MCH 27.9 Cancelled MCHC 32.6 Cancelled RDW 14.3 H Cancelled Plt Count 241 Cancelled Seg Neutrophils % 59.5 Cancelled Lymphocytes % 25.4 Cancelled Monocytes % 6.6 Cancelled Eosinophils % 7.4 H Cancelled Basophils % 1.1 Cancelled Absolute Neutrophils 4.0 Cancelled Absolute Lymphocytes 1.7 Cancelled Absolute Monocytes 0.4 Cancelled Absolute Eosinophils 0.5 Cancelled Absolute Basophils 0.1 Cancelled Sodium 138.4 Potassium 4.5 Chloride 104 Carbon Dioxide 27 Anion Gap 7 BUN 10 Creatinine 0.70 Est GFR ( Amer) > 60 Est GFR (Non-Af Amer) > 60 Glucose 144 H Calcium 8.9 05/21/18 13:12 WBC 6.8 RBC 2.94 L Hgb 8.4 L Hct 25.3 L MCV 86 MCH 28.4 MCHC 33.0 RDW 14.6 H Plt Count 275 Seg Neutrophils % 74.1 Lymphocytes % 15.1 Monocytes % 3.5 Eosinophils % 6.0 Basophils % 1.3 Absolute Neutrophils 5.0 Absolute Lymphocytes 1.0 Absolute Monocytes 0.2 Absolute Eosinophils 0.4 Absolute Basophils 0.1 Sodium Potassium Chloride Carbon Dioxide Anion Gap BUN Creatinine Est GFR ( Amer) Est GFR (Non-Af Amer) Glucose Calcium 05/20/18 11:35 Troponin I < 0.012 Impressions: Lower Extremity CT 05/20/18 00:00 IMPRESSION: Cellulitis. No evidence of abscess or osteomyelitis. Assessment & Plan - Diagnosis (1) Cellulitis Qualifiers: Site of cellulitis: extremity Site of cellulitis of extremity: lower extr emity Laterality: left Qualified Code(s): L03.116 - Cellulitis of left lower limb Is this a current diagnosis for this admission?: Yes Plan: Cellulitis to the left anterior thigh at the donor graft site. Now with erythema, edema, and purulent drainage. Leukocytosis and lactic acidosis are now resolved. Patient remains afebrile. Area of errythema is extending. Wound culture (purulent fluid from draining suture boarder) growing Gram (+) cocci. Blood cultures are negative. Lower extremity CT demonstrated cellulitis without abscess/fluid collection or evidence of osteomyelitis. The patient is admitted to the medical floor. He is empirically placed on IV vancomycin and Zosyn; will adjust as cultures result. Surgical consultation; appreciate their evaluation and recommendations for wound care. Have contacted [facility] to discuss option for discharge w/ close follow up at their facility the following day. Awaiting return call of on-call provider. Antipyretics as needed. Elevate the extremity as able. (2) Chronic pain Qualifiers: Chronic pain type: chronic pain syndrome Qualified Code(s): G89.4 - Chronic pain syndrome Is this a current diagnosis for this admission?: Yes Plan: Unfortunately, Butrans patches are not on formulary. May use home-supplied medication. Continue home dose gabapentin. Tylenol as needed for mild discomfort or fever. Oxycodone 5/325 every 6 hours as needed for acute pain. (3) Depression Qualifiers: Depression Type: unspecified Qualified Code(s): F32.9 - Major depressive disorder, single episode, unspecified Is this a current diagnosis for this admission?: Yes Plan: Continue home dose Cymbalta twice daily and trazodone nightly. (4) Diabetes mellitus Qualifiers: Diabetes mellitus type: type 2 Diabetes mellitus intermediate insulin use: without intermediate use Diabetes mellitus complication status: without complication Qualified Code(s): E11.9 - Type 2 diabetes mellitus without complications Is this a current diagnosis for this admission?: Yes Plan: Hold metformin while inpatient. Patient was placed on a consistent carb diet. Accu-Cheks before meals and at bedtime with Humalog for sliding scale coverage. (5) Hypertension Qualifiers: Hypertension type: essential hypertension Qualified Code(s): I10 - Essential (primary) hypertension Is this a current diagnosis for this admission?: Yes Plan: The patient's home medication regiment of metoprolol and lisinopril are continued. (6) Lactic acidosis Is this a current diagnosis for this admission?: Yes Plan: Resolved following IV fluid bolus. - Time Time Spent with patient: 15-24 minutes Medications reviewed and adjusted accordingly: Yes Anticipated discharge: Home Within: within 24 hours
[2018-05-21] MEDS: SULFAMETHOXAZOLE/TRIMETHOPRIM 800-160 MG TABLET PO SCH (17:57)
[2018-05-21] MEDS ORDERED: ATORVASTATIN CALCIUM 10 MG TABLET PO SCH (18:00)
[2018-05-21] MEDS: AMOXICILLIN TR/POT CLAVULANATE 500-125 MG TAB PO SCH (21:51)
[2018-05-22] MEDS: SULFAMETHOXAZOLE/TRIMETHOPRIM 800-160 MG TABLET PO SCH (05:40)
[2018-05-22] MEDS: AMOXICILLIN TR/POT CLAVULANATE 500-125 MG TAB PO SCH ×2 (05:40→13:39)
[2018-05-22] MEDS: HEPARIN SOD (PORCINE) 5,000 UNIT/ML 1 ML SYRINGE SUBCUT SCH ×2 (05:41→13:37)
[2018-05-22 06:04] LABS: ABSOLUTE BASOPHILS # (AUTO) 0.1 10^3/uL (0.0-0.2); ABSOLUTE EOSINOPHILS # (AUTO) 0.5 10^3/uL (0.0-0.6); ABSOLUTE LYMPHOCYTES (AUTO) 1.8 10^3/uL (0.5-4.7); ABSOLUTE MONOCYTES (AUTO) 0.4 10^3/uL (0.1-1.4); ABSOLUTE NEUT (AUTO) 4.9 10^3/uL (1.7-8.2); BASOPHILS % (AUTO) 1.2 % (0-2); HEMATOCRIT 22.8 % (37.9-51.0); LYMPHOCYTES % (AUTO) 23.1 % (13-45); MEAN CORPUSCULAR HEMOGLOBIN 29.1 pg (27.0-33.4); MEAN CORPUSCULAR HGB CONC 34.3 g/dL (32.0-36.0); MEAN CORPUSCULAR VOLUME 85 fl (80-97); PLATELET COUNT 227 10^3/uL (150-450); RED CELL DISTRIBUTION WIDTH 14.5 % (11.5-14.0); SEGMENTED NEUTROPHILS % (AUTO) 63.7 % (42-78); TOTAL CELLS COUNTED % (AUTO) 100 %; WHITE BLOOD COUNT 7.6 10^3/uL (4.0-10.5)
[2018-05-22 06:07] LABS: HEMOGLOBIN 7.8 g/dL (13.5-17.0)
[2018-05-22 06:22] LABS: ANION GAP 7 (5-19); BLOOD UREA NITROGEN 8 mg/dL (7-20); CARBON DIOXIDE 27 mmol/L (22-30); CHLORIDE 106 mmol/L (98-107); GLUCOSE 132 mg/dL (75-110); POTASSIUM 4.6 mmol/L (3.6-5.0); SODIUM 139.6 mmol/L (137-145)
[2018-05-22] MEDS ORDERED: NORMAL SALINE 250 ML IV PRN ×2 (07:49)
[2018-05-22 07:58] LABS: ABSOLUTE RETICS # 0.069 10^6/uL (0.028-0.122); RETICULOCYTE COUNT (AUTO) 2.57 % (0.66-2.85)
[2018-05-22 09:12] LABS: IRON(TIBC) 36.4 ug/dL (49-181)
[2018-05-22 10:21] LABS: FOLATE 5.63 ng/mL (>2.76)
[2018-05-22] MEDS: DOCUSATE SODIUM 100 MG CAPSULE PO SCH (10:22)
[2018-05-22] MEDS: FAMOTIDINE 20 MG TABLET PO SCH (10:24)
[2018-05-22] MEDS: ASPIRIN 81 MG TABLET, ENT COATED PO SCH (10:29)
[2018-05-22] MEDS: DULOXETINE HCL 30 MG CAPSULE.DR PO SCH (10:29)
[2018-05-22] MEDS: LISINOPRIL 5 MG TABLET PO SCH (10:30)
[2018-05-22] MEDS: METOPROLOL SUCCINATE 50 MG TAB.SR.24H PO SCH (10:30)
[2018-05-22] MEDS: GABAPENTIN 300 MG CAPSULE PO SCH (10:30)
[2018-05-22 15:23] VITALS: BP 142/74
--- NOTE | 2018-05-22 17:50 | PDOC DISCHARGE SUMMARY ---
General - Admit/Disc Date/PCP Admission Date/Primary Care Provider: 05/20/18 15:33 DIANNA HEBERT MD Discharge Date: 05/22/18 - Discharge Diagnosis (1) Cellulitis Is this a current diagnosis for this admission?: Yes Summary: Cellulitis to the left anterior thigh at the donor graft site. Leukocytosis and lactic acidosis are now resolved. Patient remains afebrile. Wound culture (purulent fluid from draining suture boarder) positive for MSSA. Blood cultures are negative at [address] demonstrated cellulitis without abscess/fluid collection or evidence of osteomyelitis. The patient is admitted to the medical floor. He was empirically placed on IV vancomycin and Zosyn. Vancomycin discontinued once cultures results and patient was transitioned to high dose Augmentin. Surgical consultation was obtained; wound care recommendations were provided, no concern for underlying abscess/fluid collection. Spoke with on-call ENT at [facility], Dr. Ruff. Confirmed the donor site has an Integra skin matrix sutured in place. Dr. Ruff had no specific antibiotic recommendations; deferred to our service, and did not voice an objection to early discharge if patient was stable and appeared to be clinically improving. Prior to discharge today, Dr. Shepherd evaluated the wound. Agreed with plan to discharge on high dose Augmentin and to follow up with surgeon, Dr. Deleon, as scheduled tomorrow. At time of discharge, the patient is in stable condition. He is provided a prescription for Augmentin 875/125 three times daily. He is encouraged to follow up with his primary care provider tomorrow, as scheduled, and to return to the emergency department as needed for any concerning symptoms. (2) Chronic pain Is this a current diagnosis for this admission?: Yes Summary: Recommend continuing his home dose of Butrans and gabapentin. Utilize Tylenol as needed for mild discomfort. (3) Depression Is this a current diagnosis for this admission?: Yes Summary: Continue home dose Cymbalta and trazodone. (4) Diabetes mellitus Is this a current diagnosis for this admission?: Yes Summary: The patient's glucose was well controlled during his stay. Resume home dose metformin upon discharge. (5) Hypertension Is this a current diagnosis for this admission?: Yes Summary: Acceptable blood pressures on home medication regiment. (6) Lactic acidosis Is this a current diagnosis for this admission?: Yes Summary: Resolved; secondary to #1. (7) Anemia Is this a current diagnosis for this admission?: Yes Summary: Patient with iron deficiency anemia. Hemoglobin trended down from 9.5-7.7 following IV fluid resuscitation; wavered 8.4, 7.8. Anemia panel revealed low iron; 36.4. Patient was agreeable to transfusion; was provided for 1 unit packed red blood cells. He was educated on the importance of initiating OTC iron supplementation. Recommend follow-up CBC within the next week. - Additional Information Resuscitation Status: Full Code Discharge Diet: Regular Discharge Activity: Activity As Tolerated, Balance Activity w/Rest, Slowly Increase Activity Prescriptions: Amox Tr/Potassium Clavulanate [Augmentin 875-125 mg Tablet] 1 tab PO TID #30 tablet Home Medications: Aspirin [Adult Low Dose Aspirin EC] 81 mg PO QAM 05/20/18 Atorvastatin Calcium [Lipitor 10 mg Tablet] 10 mg PO QPM 05/20/18 Buprenorphine [Butrans] 1 patch TD FR 05/20/18 Duloxetine HCl [Cymbalta] 60 mg PO Q12 05/20/18 Gabapentin [Neurontin 300 mg Capsule] 300 mg PO Q12 05/20/18 Lisinopril [Zestril] 2.5 mg PO QAM 05/20/18 Metformin HCl [Glucophage 500 mg Tablet] 500 mg PO QPM 05/20/18 Metoprolol Succinate [Toprol Xl 50 mg Tab.sr] 50 mg PO QAM 05/20/18 Pantoprazole Sodium [Protonix] 40 mg PO QAM 05/20/18 Trazodone HCl [Desyrel] 100 mg PO HSP PRN 05/20/18 Acetaminophen [Tylenol 325 mg Tablet] 650 mg PO Q4HP PRN tablet 05/22/18 Amox Tr/Potassium Clavulanate [Augmentin 875-125 mg Tablet] 1 tab PO TID #30 tablet 05/22/18 History of Present Illness History of Present Illness: DAYRON WILEY is a 67 year old male with a past medical history of CVA, hypertension, hyperlipidemia, DM 2, and basal cell skin cancers status post skin grafting at [facility] 05/07/2018 who presented to the emergency department today with a complaint of increased erythema, edema, tenderness to the donor graft site on his left anterior thigh. The patient's spouse reports that she noted slight erythema to the wound edges 2 days ago without edema or drainage. Today she noted that the erythema had increased in intensity and size, now with increased edema and purulent drainage from the sutures to the medial portion of the graft site. Evaluation in the emergency department revealed leukocytosis (WBCs 13.1), anemia (hemoglobin 9.5; down from a baseline of 12.4), and unremarkable chemistry, elevated lactic acid (3.0; decreased to 1.5 following IV fluid bolus times 3 L), and normal vital signs. [facility] was contacted by the emergency department provider who recommended IV antibiotics and to follow-up in their clinic as scheduled on Saturday. He was referred to the hospitalist service for the above-mentioned complaints. Physical Exam Vital Signs: Temp Pulse Resp BP Pulse Ox 98.0 F 64 16 142/74 H 94 05/22/18 16:14 05/22/18 16:14 05/22/18 16:14 05/22/18 16:14 05/22/18 16:14 Intake & Output 05/21/18 05/22/18 05/23/18 06:59 06:59 06:59 Intake Total 3760 2450 300 Balance 3760 2450 300 Weight 95.8 kg 96.2 kg General appearance: PRESENT: no acute distress, hard of hearing, well-developed, well-nourished Head exam: PRESENT: atraumatic, normocephalic Eye exam: PRESENT: conjunctiva pink, EOMI, PERRLA. ABSENT: scleral icterus Ear exam: PRESENT: other - Skin graft to right temporal/maxillary region. Surgical incision extends down the right lateral neck; well approximated with escobar tures/jennifer. No errythema or drainage present. Mouth exam: PRESENT: moist, tongue midline Neck exam: ABSENT: carotid bruit, JVD, lymphadenopathy, thyromegaly Respiratory exam: PRESENT: clear to auscultation bam, symmetrical, unlabored. ABSENT: rales, rhonchi, wheezes Cardiovascular exam: PRESENT: RRR. ABSENT: diastolic murmur, rubs, systolic murmur Pulses: PRESENT: normal dorsalis pedis pul Vascular exam: PRESENT: normal capillary refill GI/Abdominal exam: PRESENT: normal bowel sounds, soft. ABSENT: distended, gua rding, mass, organolmegaly, rebound, tenderness Rectal exam: PRESENT: deferred Extremities exam: PRESENT: full ROM. ABSENT: calf tenderness, clubbing, pedal edema Neurological exam: PRESENT: alert, awake, oriented to person, oriented to place, oriented to time, oriented to situation, CN II-XII grossly intact. ABSENT: callum r sensory deficit Psychiatric exam: PRESENT: appropriate affect, normal mood. ABSENT: homicidal ideation, suicidal ideation Skin exam: PRESENT: dry, erythema, warm, other - Donor graft site to left anterior thigh. Wound is well approximated with jennifer proximally and distally to the graft site; now with errythema to incision. Clear film is sutured to the graft site; 2 cm border of erythema. Edema to graft site. Nontender.. ABSENT: cyanosis, rash Results Laboratory Results: 05/22/18 05:24 05/22/18 05:24 05/22/18 05/22/18 05/22/18 05:24 05:24 05:24 WBC 7.6 RBC 2.70 L Hgb 7.8 L Hct 22.8 L MCV 85 MCH 29.1 MCHC 34.3 RDW 14.5 H Plt Count 227 Seg Neutrophils % 63.7 Lymphocytes % 23.1 Monocytes % 5.0 Eosinophils % 7.0 H Basophils % 1.2 Absolute Neutrophils 4.9 Absolute Lymphocytes 1.8 Absolute Monocytes 0.4 Absolute Eosinophils 0.5 Absolute Basophils 0.1 Retic Count (auto) 2.57 Absolute Retic 0.069 Sodium 139.6 Potassium 4.6 Chloride 106 Carbon Dioxide 27 Anion Gap 7 BUN 8 Creatinine 0.65 Est GFR ( Amer) > 60 Est GFR (Non-Af Amer) > 60 Glucose 132 H Calcium 9.0 Iron TIBC % Saturation Ferritin Vitamin B12 Folate Blood Type Antibody Screen 05/22/18 05/22/18 05:24 08:25 WBC RBC Hgb Hct MCV MCH MCHC RDW Plt Count Seg Neutrophils % Lymphocytes % Monocytes % Eosinophils % Basophils % Absolute Neutrophils Absolute Lymphocytes Absolute Monocytes Absolute Eosinophils Absolute Basophils Retic Count (auto) Absolute Retic Sodium Potassium Chloride Carbon Dioxide Anion Gap BUN Creatinine Est GFR ( Amer) Est GFR (Non-Af Amer) Glucose Calcium Iron 36.4 L TIBC 306 % Saturation 12 Ferritin 19.80 Vitamin B12 278.0 Folate 5.63 Blood Type A POSITIVE Antibody Screen NEGATIVE 05/20/18 15:26 Leg - Left Cellulitis Gram Stain - Final 05/20/18 15:26 Leg - Left Cellulitis Wound Culture - Final Staphylococcus Aureus 05/20/18 11:35 Troponin I < 0.012 Impressions: Lower Extremity CT 05/20/18 00:00 IMPRESSION: Cellulitis. No evidence of abscess or osteomyelitis. Qualifiers - * PATIENT BEING DISCHARGED WITH ANY OF THE FOLLOWING DIAGNOSIS: No Plan Discharge Plan: Discharged home into the care of family members. Follow-up with primary care provider within 1 week; recommend repeat CBC at that time. Follow-up with Dr. Deleon as scheduled at [facility] tomorrow. Return to the emergency department as needed for any concerning symptoms. Time Spent: Less than 30 Minutes
[2018-05-23] MEDS ORDERED: (PENDING PHARMACY ID) (Buprenorphine [Butrans] 1 PATCH) TD SCH (18:13)
== END 2018-05-22 16:30 | disposition home or self-care (01) | DRG 603 ==
LOC: ER 10:58 → EH 14:55 → OBSVTOIN 15:33 → 4N 16:30
PROVIDERS: ADMIT Hospitalist; ATTEND Hospitalist
PROC: 30233N1 Transfusion of Nonautologous Red Blood Cells into Peripheral Vein, Percutaneous Approach (ICD-10-PCS; principal; 2018-05-22)
DX: L03.116 Cellulitis of left lower limb (principal); E87.2 Acidosis; B95.61 Methicillin susceptible Staphylococcus aureus infection as the cause of diseases classified elsewhere; E11.9 Type 2 diabetes mellitus without complications; D50.9 Iron deficiency anemia, unspecified; E78.5 Hyperlipidemia, unspecified; G89.4 Chronic pain syndrome; F32.9 Major depressive disorder, single episode, unspecified; I10 Essential (primary) hypertension; H91.90 Unspecified hearing loss, unspecified ear; M19.90 Unspecified osteoarthritis, unspecified site; K21.9 Gastro-esophageal reflux disease without esophagitis; Z79.84 Long term (current) use of oral hypoglycemic drugs; Z79.82 Long term (current) use of aspirin; Z86.73 Personal history of transient ischemic attack (TIA), and cerebral infarction without residual deficits; Z85.828 Personal history of other malignant neoplasm of skin; Z89.021 Acquired absence of right finger(s); Z89.022 Acquired absence of left finger(s); Z85.46 Personal history of malignant neoplasm of prostate; Z90.49 Acquired absence of other specified parts of digestive tract; Z87.891 Personal history of nicotine dependence
CPT/HCPCS: 36415; 36430; 80048; 80053; 82607; 82728; 82746; 82962; 83540; 83550; 83605; 84484; 85025; 85045; 85610; 86850; 86900; 86901; 86920; 87040; 87070; 87075; 87077; 87186; 87205; 93005; 93010; 96361; 96365; 96366; 96375; 99284; J1644; J2543; J3010; J3370; J3490; J7030; J7060; P9016

== ENCOUNTER → 2018-07-14 | Outpatient (CLI) | payer MEDICARE, OTHER ==
[2018-07-14 17:42] LABS: ABSOLUTE BASOPHILS # (AUTO) 0.1 10^3/uL (0.0-0.2); ABSOLUTE EOSINOPHILS # (AUTO) 0.2 10^3/uL (0.0-0.6); ABSOLUTE LYMPHOCYTES (AUTO) 1.5 10^3/uL (0.5-4.7); ABSOLUTE MONOCYTES (AUTO) 0.4 10^3/uL (0.1-1.4); ABSOLUTE NEUT (AUTO) 3.8 10^3/uL (1.7-8.2); EOSINOPHILS % (AUTO) 2.8 % (0-6); HEMATOCRIT 32.3 % (37.9-51.0); HEMOGLOBIN 10.7 g/dL (13.5-17.0); LYMPHOCYTES % (AUTO) 25.3 % (13-45); MEAN CORPUSCULAR HEMOGLOBIN 26.3 pg (27.0-33.4); MEAN CORPUSCULAR HGB CONC 33.2 g/dL (32.0-36.0); MEAN CORPUSCULAR VOLUME 79 fl (80-97); MONOCYTES % (AUTO) 6.8 % (3-13); PLATELET COUNT 225 10^3/uL (150-450); RED BLOOD COUNT 4.07 10^6/uL (4.35-5.55); RED CELL DISTRIBUTION WIDTH 15.4 % (11.5-14.0); SEGMENTED NEUTROPHILS % (AUTO) 64.1 % (42-78); TOTAL CELLS COUNTED % (AUTO) 100 %
== END ==
LOC: OD 16:59
PROVIDERS: ATTEND Radiology Radiation Oncology
DX: C44.329 Squamous cell carcinoma of skin of other parts of face (principal)
CPT/HCPCS: 36415; 85025

== ENCOUNTER 2018-12-13 06:12 | Emergency (ER) | payer MEDICARE, OTHER ==
[2018-12-13 07:52] LABS: ABSOLUTE EOSINOPHILS # (AUTO) 0.2 10^3/uL (0.0-0.6); ABSOLUTE LYMPHOCYTES (AUTO) 1.1 10^3/uL (0.5-4.7); ABSOLUTE MONOCYTES (AUTO) 0.4 10^3/uL (0.1-1.4); ABSOLUTE NEUT (AUTO) 3.2 10^3/uL (1.7-8.2); BASOPHILS % (AUTO) 0.7 % (0-2); EOSINOPHILS % (AUTO) 4.6 % (0-6); HEMATOCRIT 32.9 % (37.9-51.0); HEMOGLOBIN 10.9 g/dL (13.5-17.0); LYMPHOCYTES % (AUTO) 22.6 % (13-45); MEAN CORPUSCULAR HEMOGLOBIN 26.2 pg (27.0-33.4); MEAN CORPUSCULAR VOLUME 79 fl (80-97); MONOCYTES % (AUTO) 7.2 % (3-13); PLATELET COUNT 171 10^3/uL (150-450); RED BLOOD COUNT 4.15 10^6/uL (4.35-5.55); RED CELL DISTRIBUTION WIDTH 17.1 % (11.5-14.0); SEGMENTED NEUTROPHILS % (AUTO) 64.9 % (42-78); TOTAL CELLS COUNTED % (AUTO) 100 %; WHITE BLOOD COUNT 4.9 10^3/uL (4.0-10.5)
--- NOTE | 2018-12-13 07:54 | ER Document Report ---
ED General - General Chief Complaint: Possible Kidney Stone Stated Complaint: ABDOMINAL PAIN Time Seen by Provider: 12/13/18 07:26 Primary Care Provider: LUCY JASSO MD [ASSOCIATE] - Follow up as needed TRAVEL OUTSIDE OF THE [place] IN LAST 30 DAYS: No - HPI Notes: Patient is a 68-year-old gentleman who presents to the emergency department for evaluation of pain in his left lower quadrant and left flank. He stated it started in the middle the night. It was sharp and stabbing, waxing and waning in nature. He had associated urinary frequency. He did have some mild nausea but no emesis. No fevers or chills. Normal bowel movements. He did have a kidney stone about 20 years ago, states that this feels similar. Initially his pain was a 10 out of 10. He was medicated in route with Toradol, resulting in 6 out of 10 pain. He states that this point he has absolutely no pain. - Related Data Allergies/Adverse Reactions: morphine Allergy (Severe, Verified 01/21/18 11:44) STOPPED BREATHING AND ALSO AMS meloxicam [From Mobic] Allergy (Verified 01/21/18 11:44) ITCHING,RASH Home Medications: Trazodone, Cymbalta, Neurontin, atorvastatin, metformin, oxycodone, aspirin, metoprolol, lisinopril, Protonix, Butrans patch Past Medical History - General Information source: Patient - Social History Smoking Status: Never Smoker Frequency of alcohol use: None Drug Abuse: None Family History: Reviewed & Not Pertinent Patient has suicidal ideation: No Patient has homicidal ideation: No - Past Medical History Cardiac Medical History: Reports: Hx Hypercholesterolemia, Hx Hypertension Denies: Hx Coronary Artery Disease, Hx Heart Attack Pulmonary Medical History: Denies: Hx Asthma, Hx Bronchitis, Hx COPD, Hx Pneumonia Neurological Medical History: Reports: Hx Cerebrovascular Accident - 2016 NO WEAKNESS JUST COGNITIVE DEFICITS AT TIMES. Denies: Hx Seizures Endocrine Medical History: Reports: Hx Diabetes Mellitus Type 2 Renal/ Medical History: Reports: Hx Kidney Stones. Denies: Hx Peritoneal Dialysis Malignancy Medical History: Reports Hx Prostate Cancer, Reports Hx Skin Cancer - Removed from the superior cranium area over a year ago GI Medical History: Reports: Hx Diverticulitis, Hx Gastroesophageal Reflux Disease Musculoskeletal Medical History: Reports Hx Arthritis Psychiatric Medical History: Reports: Hx Depression Past Surgical History: Reports: Hx Abdominal Surgery - hernia repair x2, Hx Appendectomy, Hx Bowel Surgery - colon removal, Hx Cholecystectomy, Hx Orthopedic Surgery - left knee, right 4th finger, left 1st and 2nd partial amputations, Hx Tonsillectomy, Other - Prostatectomy secondary to prostate cancer. Partial colectomy at age 19. - Immunizations Immunizations up to date: No Hx Diphtheria, Pertussis, Tetanus Vaccination: No Hx Pneumococcal Vaccination: 05/14/18 Review of Systems - Review of Systems Constitutional: No symptoms reported EENT: No symptoms reported Cardiovascular: No symptoms reported Respiratory: No symptoms reported Gastrointestinal: See HPI Genitourinary: See HPI Male Genitourinary: No symptoms reported Musculoskeletal: No symptoms reported Skin: No symptoms reported Neurological/Psychological: No symptoms reported Physical Exam - Vital signs Vitals: Temp Pulse Resp BP Pulse Ox 97.7 F 56 L 18 109/69 95 12/13/18 06:19 12/13/18 06:19 12/13/18 06:19 12/13/18 06:19 12/13/18 06:19 - Notes Notes: Vital signs reviewed, please refer to chart. Head is normocephalic, atraumatic. Patient with resection of right ear, well-healing graft. Pupils equal round, reactive to light. Neck is supple without meningismus. Heart is regular rate and rhythm. Lungs are clear to auscultation bilaterally. Abdomen is soft, nontender, normoactive bowel sounds throughout. Extremities without cyanosis, clubbing. Posterior calves are nontender. Peripheral pulses are equal. Skin is warm and dry. Patient is awake, alert, cooperative and pleasant with examiner. Course - Re-evaluation Re-evalutation: 12/13/18 07:55 Patient presents emergency department for evaluation. His pain started very low, and he is now pain-free. I do suspect that he was suffering from renal colic secondary to a kidney stone. My suspicion is at this point that he passed it into his bladder. He remains pain-free. We will check blood work, urinalysis, and continue to follow. 12/13/18 10:55 Patient reexamined. He remains completely pain-free. There is blood in his urine but otherwise no significant abnormalities. My suspicion is that he has passed a kidney stone into his bladder. At this point he remains completely asymptomatic and abdomen is nontender. He does have blood in his urine, again consistent with renal colic secondary to ureterolithiasis. This is sent for culture. Findings explained to patient and . We will send him home. He is follow-up with primary care. Return to the emergency department with worsening or concerning symptoms. - Vital Signs Vital signs: Temp Pulse Resp BP Pulse Ox 97.7 F 56 L 18 109/69 95 12/13/18 06:19 12/13/18 06:19 12/13/18 06:19 12/13/18 06:19 12/13/18 06:19 - Laboratory Result Diagrams: 12/13/18 07:35 12/13/18 07:35 Laboratory results interpreted by me: 12/13/18 12/13/18 12/13/18 07:35 07:35 10:10 RBC 4.15 L Hgb 10.9 L Hct 32.9 L MCV 79 L MCH 26.2 L RDW 17.1 H Carbon Dioxide 32 H Glucose 148 H Urine Protein 30 H Urine Blood MODERATE H Discharge - Discharge Clinical Impression: Renal colic on left side Condition: Stable Disposition: HOME, SELF-CARE Instructions: Kidney Stone (OM) Additional Instructions: Your history and exam today were most consistent with a kidney stone. Given that you are now completely pain-free, I suspect you have passed the stone into your bladder. Follow-up with your primary care provider next week. There was some resulting blood in your urine. This is been sent for culture, you will be contacted if infection is noted. If you develop worsening or new concerning symptoms of any sort, return immediately to the emergency department for reevaluation. Referrals: LUCY JASSO MD [ASSOCIATE] - Follow up as needed
[2018-12-13 08:18] LABS: ANION GAP 10 (5-19); BLOOD UREA NITROGEN 13 mg/dL (7-20); CALCIUM 9.7 mg/dL (8.4-10.2); CARBON DIOXIDE 32 mmol/L (22-30); CHLORIDE 100 mmol/L (98-107); GLUCOSE 148 mg/dL (75-110)
[2018-12-13 10:28] LABS: APPEARANCE,URINE SLIGHTLY-CLOUDY; BILIRUBIN,URINE NEGATIVE (NEGATIVE); GLUCOSE, URINE NEGATIVE (NEGATIVE); KETONES,URINE NEGATIVE (NEGATIVE); LEUKOCYTE ESTERASE,URINE NEGATIVE (NEGATIVE); NITRITE,URINE NEGATIVE (NEGATIVE); PROTEIN,URINE 30 mg/dL (NEGATIVE); URINE SPECIFIC GRAVITY 1.024; UROBILINOGEN,URINE NEGATIVE mg/dL (<2.0)
[2018-12-13 10:29] LABS: COLOR,URINE DARK YELLOW
[2018-12-13 11:08] VITALS: BP 143/84
== END 2018-12-13 11:05 | disposition home or self-care (01) ==
LOC: ER 06:12
DX: N23 Unspecified renal colic (principal); R31.9 Hematuria, unspecified; R35.0 Frequency of micturition; R11.0 Nausea; E78.00 Pure hypercholesterolemia, unspecified; I10 Essential (primary) hypertension; K21.9 Gastro-esophageal reflux disease without esophagitis; E11.9 Type 2 diabetes mellitus without complications; Z79.84 Long term (current) use of oral hypoglycemic drugs; Z79.899 Other long term (current) drug therapy; Z79.891 Long term (current) use of opiate analgesic; Z79.82 Long term (current) use of aspirin; Z87.442 Personal history of urinary calculi; Z88.5 Allergy status to narcotic agent; Z88.8 Allergy status to other drugs, medicaments and biological substances
CPT/HCPCS: 36415; 80048; 81001; 85025; 87086; 99284

== ENCOUNTER 2019-07-22 07:56 | Day surgery (SDC) | payer MEDICARE, OTHER ==
[~2019-07-22 07:56] MED LIST changes: +CHONDR SU A NA/HYALUR INTRAOC KIT (SURGICARE) ONE; -DIPHENHYDRAMINE HCL 50 MG/ML VIAL ONE; +DORZOLAMIDE HCL 2%/TIMOLOL MALEAT 0.5% OPH SOLN 10 ML OD PRN; -EPINEPHRINE INJ 1 MG/10 ML DISP.SYRIN ONE; +EPINEPHRINE INJ/PF 1 MG/1 ML AMPULE ONE; -FLUMAZENIL INJ 0.5 MG/5 ML VIAL ONE; -GLUCAGON,HUMAN RECOMB 1 MG INJ ONE; +KETOROLAC TROMETHAMINE 0.45% 4 DROP/0.4 ML DROPERETTE OD PRN; +LIDOCAINE 1%/PHENYLEPHRINE 1.5% 1 ML VIAL ONE; -NALOXONE HCL INJ/PF 0.4 MG/1 ML SDV ONE
[2019-07-22] MEDS: TETRACAINE HCL 0.5% OPH SOLN 4 ML OD PRN ×3 (08:32→08:54)
[2019-07-22] MEDS: CYCLOPENTOLATE 0.2%/PHENYLEPHRINE 1% OPH SOLN 2 ML OD PRN ×3 (08:32→08:52)
[2019-07-22] MEDS: TROPICAMIDE 1% OPH SOLN 15 ML OD PRN ×3 (08:32→08:52)
[2019-07-22] MEDS: BESIFLOXACIN HCL 0.6% OPH SUSP 5 ML BOTTLE OD PRN ×3 (08:32→08:42)
--- NOTE | 2019-07-22 13:54 | Operative Report ---
Operative Report-[facility] Operative Report: DATE OF SURGERY: July 22, 2019 PREOPERATIVE DIAGNOSIS: NUCLEAR CATARACT, RIGHT EYE. POSTOPERATIVE DIAGNOSIS: NUCLEAR CATARACT, RIGHT EYE. PROCEDURE PERFORMED: PHACOEMULSIFICATION WITH POSTERIOR CHAMBER INTRAOCULAR LENS IMPLANT, RIGHT EYE. SURGEON: Kyler Tran DO MEDICATIONS AND ANESTHESIA: Versed: IV Versed Tetracaine drops: 1 to 2 drops given as needed COMPLICATION: None INDICATIONS FOR SURGERY: Medical necessity: Best corrected visual acuity worse than 20/40 secondary to cataracts with impairment of ability to carry out needs or desired activities, blurred vision, visual distortion, reduced contrast sensitivity and/or glare with association functional impairment and supporting documentation/testing, and cataracts causing symptomatic impairment of visual functions not corrected with tolerable changes in glasses or contact lenses interfering with activities of daily life. PROCEDURE: Consent: The risks, benefits and alternatives of this procedures was discussed with the patient. The patient read and signed the consent forms, was identified and was seated in the exam chair. IOL: MX 60 E 16.5 IOL Diopters: Phacoemulsification with posterior chamber intraocular lens implant: The face was prepped with 5% povidone iodine solution, and a few drops of 5% povidone iodine solution was instilled into the inferior fornix. A non-fenestrated drape was placed over the eye and the lids were parted with the speculum. A paracentesis was made with a 15 degree blade, and 1% lidocaine MPF followed by viscoelastic was injected into the anterior chamber. A 2.4 mm metal micro- keratome was used to create a temporal clear corneal incision. A circular anterior capsulorrhexis was created, followed by hydro-dissection and hydro- delineation. The phacoemulsification hand piece was inserted and the nucleus was removed with the Phaco chop technique. The irrigation-aspiration hand piece was used to remove the residual cortex, and vacuum the posterior capsule. The capsular bag was inflated and viscoelastic and the above-mentioned IOL was injected into the eye with care to insert both leaning and trailing haptics in the capsular bag. The irrigation/aspiration hand piece was reinserted to remove residual viscoelastic from the capsular bag and anterior chamber. The corneal incision was hydrated, and anterior chamber was inflated with sterile BSS via the paracentesis site, and found to be watertight. Postop medication: 1 drop of prednisolone into operative by followed by 1 drop of Cosopt into operative eye followed by 1 drop of Besivance intraoperative by other:
== END 2019-07-22 09:53 | disposition home or self-care (01) ==
LOC: SC 07:56
PROVIDERS: ATTEND Ophthalmology
DX: H25.11 Age-related nuclear cataract, right eye (principal); E11.9 Type 2 diabetes mellitus without complications; I10 Essential (primary) hypertension; E78.00 Pure hypercholesterolemia, unspecified; Z86.73 Personal history of transient ischemic attack (TIA), and cerebral infarction without residual deficits; Z79.82 Long term (current) use of aspirin; Z79.899 Other long term (current) drug therapy; Z79.84 Long term (current) use of oral hypoglycemic drugs; Z88.8 Allergy status to other drugs, medicaments and biological substances; Z85.820 Personal history of malignant melanoma of skin; Z96.652 Presence of left artificial knee joint
CPT/HCPCS: 66984; 82962; 00142; J2250; J3490 ×2; A9270; J0171; J3010; J2405; 142

== ENCOUNTER 2019-08-05 11:58 | Day surgery (SDC) | payer MEDICARE, OTHER ==
[~2019-08-05 11:58] MED LIST changes: -DORZOLAMIDE HCL 2%/TIMOLOL MALEAT 0.5% OPH SOLN 10 ML OD PRN; +DORZOLAMIDE HCL 2%/TIMOLOL MALEAT 0.5% OPH SOLN 10 ML OS PRN; -FENTANYL CITRATE INJ/PF 100 MCG/2 ML AMPUL ONE; -KETOROLAC TROMETHAMINE 0.45% 4 DROP/0.4 ML DROPERETTE OD PRN; +KETOROLAC TROMETHAMINE 0.45% 4 DROP/0.4 ML DROPERETTE OS PRN; -MIDAZOLAM 2 MG/2 ML INJ ONE; -ONDANSETRON HCL INJ/PF 4 MG/2 ML SDV ONE
[2019-08-05] MEDS ORDERED: MIDAZOLAM 2 MG/2 ML INJ ONE ×2 (12:26→12:56)
[2019-08-05] MEDS ORDERED: ONDANSETRON HCL INJ/PF 4 MG/2 ML SDV ONE (12:26)
[2019-08-05] MEDS ORDERED: FENTANYL CITRATE INJ/PF 100 MCG/2 ML AMPUL ONE (12:27)
[2019-08-05] MEDS: CYCLOPENTOLATE 0.2%/PHENYLEPHRINE 1% OPH SOLN 2 ML OS PRN ×3 (12:29→12:47)
[2019-08-05] MEDS: TETRACAINE HCL 0.5% OPH SOLN 4 ML OS PRN ×3 (12:29→12:48)
[2019-08-05] MEDS: BESIFLOXACIN HCL 0.6% OPH SUSP 5 ML BOTTLE OS PRN ×3 (12:29→13:09)
[2019-08-05] MEDS: TROPICAMIDE 1% OPH SOLN 15 ML OS PRN ×3 (12:29→12:47)
--- NOTE | 2019-08-05 14:27 | Operative Report ---
Operative Report-[facility] Operative Report: DATE OF SURGERY: August 05, 2019 PREOPERATIVE DIAGNOSIS: NUCLEAR CATARACT, LEFT EYE. POSTOPERATIVE DIAGNOSIS: NUCLEAR CATARACT, LEFT EYE. PROCEDURE PERFORMED: PHACOEMULSIFICATION WITH POSTERIOR CHAMBER INTRAOCULAR LENS IMPLANT, LEFT EYE. SURGEON: Kyler Tran DO MEDICATIONS AND ANESTHESIA: Versed: IV Versed Tetracaine drops: 1 to 2 drops given as needed COMPLICATION: None INDICATIONS FOR SURGERY: Medical necessity: Best corrected visual acuity worse than 20/40 secondary to cataracts with impairment of ability to carry out needs or desired activities, blurred vision, visual distortion, reduced contrast sensitivity and/or glare with association functional impairment and supporting documentation/testing, and cataracts causing symptomatic impairment of visual functions not corrected with tolerable changes in glasses or contact lenses interfering with activities of daily life. PROCEDURE: Consent: The risks, benefits and alternatives of this procedures was discussed with the patient. The patient read and signed the consent forms, was identified and was seated in the exam chair. IOL: MX 60 E 18.5 IOL Diopters: Phacoemulsification with posterior chamber intraocular lens implant: The face was prepped with 5% povidone iodine solution, and a few drops of 5% povidone iodine solution was instilled into the inferior fornix. A non-fenestrated drape was placed over the eye and the lids were parted with the speculum. A paracentesis was made with a 15 degree blade, and 1% lidocaine MPF followed by viscoelastic was injected into the anterior chamber. A 2.4 mm metal micro- keratome was used to create a temporal clear corneal incision. A circular anterior capsulorrhexis was created, followed by hydro-dissection and hydro- delineation. The phacoemulsification hand piece was inserted and the nucleus was removed with the Phaco chop technique. The irrigation-aspiration hand piece was used to remove the residual cortex, and vacuum the posterior capsule. The capsular bag was inflated and viscoelastic and the above-mentioned IOL was injected into the eye with care to insert both leaning and trailing haptics in the capsular bag. The irrigation/aspiration hand piece was reinserted to remove residual viscoelastic from the capsular bag and anterior chamber. The corneal incision was hydrated, and anterior chamber was inflated with sterile BSS via the paracentesis site, and found to be watertight. Postop medication:1 drop of prednisolone into operative by followed by 1 drop of Cosopt into operative eye followed by 1 drop of Besivance intraoperative by Other:
== END 2019-08-05 13:52 | disposition home or self-care (01) ==
LOC: SC 11:58
PROVIDERS: ATTEND Ophthalmology
DX: H25.12 Age-related nuclear cataract, left eye (principal); Z98.41 Cataract extraction status, right eye; E11.9 Type 2 diabetes mellitus without complications; I10 Essential (primary) hypertension; E78.00 Pure hypercholesterolemia, unspecified; Z87.891 Personal history of nicotine dependence; Z85.820 Personal history of malignant melanoma of skin; Z79.82 Long term (current) use of aspirin; Z79.899 Other long term (current) drug therapy; Z79.84 Long term (current) use of oral hypoglycemic drugs; Z88.8 Allergy status to other drugs, medicaments and biological substances
CPT/HCPCS: 82962; 00142; 66984; V2632; J2250; J3490 ×2; A9270; J0171; J3010; J2405; 142

== ENCOUNTER 2019-11-06 16:13 | Emergency (ER) | payer OTHER, MEDICARE ==
[2019-11-06 16:53] LABS: ABSOLUTE EOSINOPHILS # (AUTO) 0.3 10^3/uL (0.0-0.6); ABSOLUTE LYMPHOCYTES (AUTO) 1.5 10^3/uL (0.5-4.7); ABSOLUTE MONOCYTES (AUTO) 0.5 10^3/uL (0.1-1.4); ABSOLUTE NEUT (AUTO) 3.2 10^3/uL (1.7-8.2); BASOPHILS % (AUTO) 0.9 % (0-2); EOSINOPHILS % (AUTO) 4.7 % (0-6); HEMATOCRIT 34.7 % (37.9-51.0); HEMOGLOBIN 11.2 g/dL (13.5-17.0); LYMPHOCYTES % (AUTO) 27.4 % (13-45); MEAN CORPUSCULAR HEMOGLOBIN 27.5 pg (27.0-33.4); MEAN CORPUSCULAR HGB CONC 32.2 g/dL (32.0-36.0); MEAN CORPUSCULAR VOLUME 85 fl (80-97); PLATELET COUNT 146 10^3/uL (150-450); RED BLOOD COUNT 4.07 10^6/uL (4.35-5.55); RED CELL DISTRIBUTION WIDTH 17.2 % (11.5-14.0); TOTAL CELLS COUNTED % (AUTO) 100 %; WHITE BLOOD COUNT 5.5 10^3/uL (4.0-10.5)
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
[2019-11-06] MEDS ORDERED: KETOROLAC TROMETHAMINE INJ/PF 30 MG/1 ML SDV IV ONE (19:35)
[2019-11-06 19:55] LABS: APPEARANCE,URINE CLEAR; BILIRUBIN,URINE NEGATIVE (NEGATIVE); COLOR,URINE YELLOW; GLUCOSE, URINE NEGATIVE (NEGATIVE); KETONES,URINE NEGATIVE (NEGATIVE); LEUKOCYTE ESTERASE,URINE NEGATIVE (NEGATIVE); NITRITE,URINE NEGATIVE (NEGATIVE); PROTEIN,URINE NEGATIVE (NEGATIVE); URINE SPECIFIC GRAVITY 1.008; UROBILINOGEN,URINE NEGATIVE mg/dL (<2.0)
[2019-11-06 19:59] LABS: ALBUMIN 3.7 g/dL (3.5-5.0); ALKALINE PHOSPHATASE 72 U/L (38-126); ANION GAP 8 (5-19); ASPARTATE AMINO TRANSFERASE 25 U/L (17-59); BILIRUBIN,TOTAL 0.4 mg/dL (0.2-1.3); BLOOD UREA NITROGEN 13 mg/dL (7-20); CARBON DIOXIDE 28 mmol/L (22-30); CHLORIDE 103 mmol/L (98-107); GLUCOSE 151 mg/dL (75-110); POTASSIUM 3.7 mmol/L (3.6-5.0); TOTAL PROTEIN 6.6 g/dL (6.3-8.2)
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
[2019-11-06 21:59] VITALS: BP 122/82
== END 2019-11-06 22:30 | disposition home or self-care (01) ==
LOC: ER 16:13
DX: M47.816 Spondylosis without myelopathy or radiculopathy, lumbar region (principal); M54.5 Low back pain; R41.0 Disorientation, unspecified; M54.2 Cervicalgia; M54.9 Dorsalgia, unspecified; V87.7XXA Person injured in collision between other specified motor vehicles (traffic), initial encounter; Z85.828 Personal history of other malignant neoplasm of skin; Z88.8 Allergy status to other drugs, medicaments and biological substances; I10 Essential (primary) hypertension; E11.9 Type 2 diabetes mellitus without complications
CPT/HCPCS: 99285; 96374; 36415; 82962; 85025; 80053; 81001; 70450; 71260; 72125; 74177; J1885

== ENCOUNTER 2020-03-21 16:28 | Emergency (ER) | payer MEDICARE, OTHER ==
--- NOTE | 2020-03-21 16:47 | ER Document Report ---
ED Medical Screen (RME) - General Chief Complaint: Abdominal Pain Stated Complaint: ABDOMINAL PAIN Time Seen by Provider: 03/21/20 16:43 Primary Care Provider: DIANNA HEBERT MD [Primary Care Provider] - Follow up as needed Mode of Arrival: Wheelchair Information source: Patient Notes: 69-year-old male presented to ED for left flank pain. He states the pain is go ne at the moment. It was all the way from the groin to the back on the left side. He has a history of a stroke 3 years ago and he has skin cancer to the top of his head now on his chest on the left side. He is alert oriented respirations regular nonlabored speaking in full sentences. He is in a wheelchair at this time. We will do blood and a CT abdomen pelvis to rule out a kidney stone. He will be seen by another provider. He states the pain started 3 days ago went away and then came back again today and is gone again. I have greeted and performed a rapid initial assessment of this patient. A comprehensive ED assessment and evaluation of the patient, analysis of test results and completion of medical decision making process will be conducted by an additional ED providers. TRAVEL OUTSIDE OF THE [place] IN LAST 30 DAYS: No - Related Data Allergies/Adverse Reactions: morphine Allergy (Severe, Verified 03/21/20 16:44) STOPPED BREATHING AND ALSO AMS meloxicam [From Mobic] Allergy (Verified 03/21/20 16:44) ITCHING,RASH Past Medical History - Past Medical History Cardiac Medical History: Reports: Hx Hypercholesterolemia, Hx Hypertension Denies: Hx Coronary Artery Disease, Hx Heart Attack Pulmonary Medical History: Denies: Hx Asthma, Hx Bronchitis, Hx COPD, Hx Pneumonia Neurological Medical History: Reports: Hx Cerebrovascular Accident - 2016 NO WEAKNESS JUST COGNITIVE DEFICITS AT TIMES. Denies: Hx Seizures Endocrine Medical History: Reports: Hx Diabetes Mellitus Type 2 Renal/ Medical History: Reports: Hx Kidney Stones. Denies: Hx Peritoneal Dialysis Malignancy Medical History: Reports Hx Prostate Cancer, Reports Hx Skin Cancer - Removed from the superior cranium area over a year ago GI Medical History: Reports: Hx Diverticulitis, Hx Gastroesophageal Reflux Disease Musculoskeltal Medical History: Reports Hx Arthritis Psychiatric Medical History: Reports: Hx Depression Past Surgical History: Reports: Hx Abdominal Surgery - hernia repair x2, Hx Appendectomy, Hx Bowel Surgery - colon removal, Hx Cholecystectomy, Hx Orthopedic Surgery - left knee, right 4th finger, left 1st and 2nd partial amputations, Hx Tonsillectomy, Other - Prostatectomy secondary to prostate cancer. Partial colectomy at age 19. - Immunizations Immunizations up to date: No Hx Diphtheria, Pertussis, Tetanus Vaccination: No Physical Exam - Vital signs Vitals: Temp Pulse Resp BP Pulse Ox 98.2 F 68 18 127/68 H 96 03/21/20 16:41 03/21/20 16:41 03/21/20 16:41 03/21/20 16:41 03/21/20 16:41 Course - Vital Signs Vital signs: Temp Pulse Resp BP Pulse Ox 98.2 F 68 18 127/68 H 96 03/21/20 16:41 03/21/20 16:41 03/21/20 16:41 03/21/20 16:41 03/21/20 16:41 Doctor's Discharge - Discharge Referrals: DIANNA HEBERT MD [Primary Care Provider] - Follow up as needed
[2020-03-21 17:34] LABS: ABSOLUTE BASOPHILS # (AUTO) 0.1 10^3/uL (0.0-0.2); ABSOLUTE EOSINOPHILS # (AUTO) 0.2 10^3/uL (0.0-0.6); ABSOLUTE LYMPHOCYTES (AUTO) 1.8 10^3/uL (0.5-4.7); ABSOLUTE MONOCYTES (AUTO) 0.3 10^3/uL (0.1-1.4); ABSOLUTE NEUT (AUTO) 3.7 10^3/uL (1.7-8.2); EOSINOPHILS % (AUTO) 3.7 % (0-6); HEMATOCRIT 35.9 % (37.9-51.0); HEMOGLOBIN 12.2 g/dL (13.5-17.0); LYMPHOCYTES % (AUTO) 29.1 % (13-45); MEAN CORPUSCULAR HGB CONC 34.1 g/dL (32.0-36.0); MEAN CORPUSCULAR VOLUME 88 fl (80-97); MONOCYTES % (AUTO) 5.7 % (3-13); PLATELET COUNT 150 10^3/uL (150-450); RED BLOOD COUNT 4.08 10^6/uL (4.35-5.55); RED CELL DISTRIBUTION WIDTH 13.9 % (11.5-14.0); SEGMENTED NEUTROPHILS % (AUTO) 60.5 % (42-78); TOTAL CELLS COUNTED % (AUTO) 100 %; WHITE BLOOD COUNT 6.1 10^3/uL (4.0-10.5)
[2020-03-21 17:39] LABS: APPEARANCE,URINE CLEAR; BILIRUBIN,URINE NEGATIVE (NEGATIVE); COLOR,URINE YELLOW; GLUCOSE, URINE NEGATIVE (NEGATIVE); KETONES,URINE NEGATIVE (NEGATIVE); LEUKOCYTE ESTERASE,URINE NEGATIVE (NEGATIVE); NITRITE,URINE NEGATIVE (NEGATIVE); PROTEIN,URINE NEGATIVE (NEGATIVE); URINE SPECIFIC GRAVITY 1.008; UROBILINOGEN,URINE NEGATIVE mg/dL (<2.0)
--- NOTE | 2020-03-21 17:43 | RADIOLOGY REPORT (SQ) ---
EXAM DESCRIPTION: CT ABD/PELVIS NO ORAL OR IV IMAGES COMPLETED DATE/TIME: 03/21/2020 5:20 pm REASON FOR STUDY: left flank pain COMPARISON: 06/20/2017 TECHNIQUE: CT scan of the abdomen and pelvis performed without intravenous or oral contrast. Images reviewed with lung, soft tissue, and bone windows. Reconstructed coronal and sagittal MPR images revi ewed. All images stored on PACS. All CT scanners at this facility use dose modulation, iterative reconstruction, and/or weight based d osing when appropriate to reduce radiation dose to as low as reasonably achievable (ALARA). [facility]: Dose Right [facility]: CareDose [facility]: Dose Right [facility]: Teradose 4D [facility]: [employer] RADIATION DOSE: CT Rad equipment meets quality standard of care and radiation dose reduction techniq ues were employed. CTDIvol: 14.2 mGy. DLP: 806 mGy-cm.mGy. LIMITATIONS: None. FINDINGS: LOWER CHEST: Subpleural bleb in the right lung base. No consolidation. NON-CONTRASTED LIVER, SPLEEN, ADRENALS: Evaluation limited by lack of IV contrast. No identified sign ificant masses. PANCREAS: No masses. No peripancreatic inflammatory changes. GALLBLADDER: Surgically absent. RIGHT KIDNEY AND URETER: No suspicious masses. Assessment limited by lack of IV contrast. No signif icant calcifications. No hydronephrosis or hydroureter. LEFT KIDNEY AND URETER: Stable left renal cyst. 1 to 2 mm left UVJ stone. Very mild dilatation of the left ureter and renal pelvis. There is left perinephric stranding. AORTA AND RETROPERITONEUM: No aneurysm. No retroperitoneal masses or adenopathy. BOWEL AND PERITONEAL CAVITY: Scattered diverticuli. No acute diverticulitis. APPENDIX: Normal. PELVIS, BLADDER, AND ABDOMINAL WALL:No abnormal masses. No free fluid. Bladder normal. BONES: No significant findings. OTHER: No other significant finding. IMPRESSION: 1 to 2 mm left UVJ stone with mild dilatation of left collecting system and perinephric stranding. COMMENT: Quality ID # [id number]: Final reports with documentation of one or more dose reduction techniques (e.g., Automated exposure control, adjustment of the mA and/or kV according to patient size, use of iterative reconstruction technique) TECHNICAL DOCUMENTATION: JOB ID: [id number] 2010 [employer]- All Rights Reserved Reading location - IP/workstation name: [email or web address]
--- NOTE | 2020-03-21 17:57 | ER Document Report ---
ED GI/ - General Chief Complaint: Flank Pain Stated Complaint: ABDOMINAL PAIN Time Seen by Provider: 03/21/20 16:43 Primary Care Provider: DIANNA HEBERT MD [Primary Care Provider] - Follow up as needed JACKI ADAIR MD [NO LOCAL MD] - Follow up in 3-5 days Mode of Arrival: Wheelchair TRAVEL OUTSIDE OF THE [place] 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 Patient states that symptoms were there yesterday and then resolved. The symptoms again began today around noon. He describes pain in his left lower quadrant into the left groin and left flank pain. Patient states currently, symptoms are resolved. He has had some diarrhea but attributes that to his immunotherapy medication which he just had last week. He denies any fevers or chills. No cough, chest pain, shortness of breath. No nausea or vomiting. He denies any hematuria or dysuria. He has had a history of diverticulitis and kidney stones many years ago in the past. Has had histories of hernia repair and colon resection due to diverticulitis many years ago. - Related Data Allergies/Adverse Reactions: morphine Allergy (Severe, Verified 03/21/20 16:44) STOPPED BREATHING AND ALSO AMS meloxicam [From Mobic] Allergy (Verified 03/21/20 16:44) ITCHING,RASH Past Medical History - General Information source: Patient - Social History Smoking Status: Never Smoker Chew tobacco use (# tins/day): No Drug Abuse: None Family History: Reviewed & Not Pertinent Patient has homicidal ideation: No - Past Medical History Cardiac Medical History: Reports: Hx Hypercholesterolemia, Hx Hypertension Denies: Hx Coronary Artery Disease, Hx Heart Attack Pulmonary Medical History: Denies: Hx Asthma, Hx Bronchitis, Hx COPD, Hx Pneumonia Neurological Medical History: Reports: Hx Cerebrovascular Accident - 2016 NO WEAKNESS JUST COGNITIVE DEFICITS AT TIMES. Denies: Hx Seizures Endocrine Medical History: Reports: Hx Diabetes Mellitus Type 2 Renal/ Medical History: Reports: Hx Kidney Stones. Denies: Hx Peritoneal Dialysis Malignancy Medical History: Reports Hx Prostate Cancer, Reports Hx Skin Cancer - Removed from the superior cranium area over a year ago GI Medical History: Reports: Hx Diverticulitis, Hx Gastroesophageal Reflux Disease Musculoskeletal Medical History: Reports Hx Arthritis Psychiatric Medical History: Reports: Hx Depression Past Surgical History: Reports: Hx Abdominal Surgery - hernia repair x2, Hx Appendectomy, Hx Bowel Surgery - colon removal, Hx Cholecystectomy, Hx Orthopedic Surgery - left knee, right 4th finger, left 1st and 2nd partial amputations, Hx Tonsillectomy, Other - Prostatectomy secondary to prostate cancer. Partial colectomy at age 19. - Immunizations Immunizations up to date: No Hx Diphtheria, Pertussis, Tetanus Vaccination: No Hx Pneumococcal Vaccination: 05/14/18 Review of Systems - Review of Systems Notes: CONSTITUTIONAL: No fever, fatigue or weight loss. SKIN: No rash. HENT: No congestion, ear pain, or sore throat. EYES: No recent vision problems or eye pain. ENDOCRINE: No thyroid problems. No polyuria or polydipsia. CARDIOVASCULAR: No chest pain or edema. RESPIRATORY: No cough, shortness of breath, congestion, or wheezing. GASTROINTESTINAL: Positive for left lower quadrant pain and left flank pain. GENITOURINARY: No dysuria. No hematuria. MUSCULOSKELETAL: No joint pain or swelling. LYMPHATIC: No swollen glands. NEUROLOGIC: No seizures. No headache, focal weakness or sensory changes. HEMATOLOGIC: No unusual bruising or bleeding. PSYCHIATRIC: No depression or anxiety. Physical Exam - Vital signs Vitals: Temp Pulse Resp BP Pulse Ox 98.2 F 68 18 127/68 H 96 03/21/20 16:41 03/21/20 16:41 03/21/20 16:41 03/21/20 16:41 03/21/20 16:41 - General General appearance: Appears well Notes: VITAL SIGNS: Within normal limits. GENERAL: No acute distress, non-toxic appearance. HEAD: Normal with no signs of head trauma. Chronic lesions from skin cancer. EYES: EOMI, conjunctiva normal, no discharge. EARS: Hearing grossly intact. NOSE: Normal. NECK: Normal range of motion, no tenderness, supple, no lymphadenopathy, No adenopathy, no JVD. CHEST: Clear breath sounds bilaterally. No wheezes, rales, or rhonchi. CARDIAC: Regular rate and rhythm. S1 and S2, without murmurs, gallops, or rubs. VASCULAR: No Edema. Peripheral pulses normal and equal in all extremities. ABDOMEN: Normal and soft with no tenderness, no masses or pulsatile masses. Non tender to exam. No rebound or guarding. GASTROINTESTINAL: Bowel sounds normal GENITOURINARY: Normal, No tenderness. No inguinal hernia palpated. MUSCULOSKELETAL: Good range of motion of all major joints. Extremities without clubbing, cyanosis or edema. NEUROLOGICAL: Alert and oriented x 3. No focal sensory or strength deficits. Speech normal. Follows commands appropriately. PSYCHIATRIC: Normal Affect, judgement and mood. SKIN: Normal appearance with no rashes or lesions. Course - Re-evaluation Re-evalutation: 03/21/20 17:57 Patient has evidence of a small UVJ kidney stone with some perinephric stranding. He also has 2 white blood cells on his UA. Due to him being immunocompromised, I will discuss with urology. Urology, Dr. Adair, did not think this was any sign of infection. The white blood cells are likely from the blood in his urine. He states that patient does not need to be on antibiotics. I discussed all this with the patient. He already has pain medicine at home from his chronic pain. Patient was instructed to stay hydrated. He was instructed to follow-up with urology. Patient was given strict return precautions including fevers, chills, vomiting, worsening pain and he is in agreement. He states his symptoms are completely resolved at this time. Yvonne ent's urine was sent for culture. 03/22/20 00:13 - Vital Signs Vital signs: Temp Pulse Resp BP Pulse Ox 98.2 F 62 18 108/65 100 03/21/20 16:41 03/21/20 19:37 03/21/20 19:37 03/21/20 19:37 03/21/20 19:37 - Laboratory Result Diagrams: 03/21/20 17:09 03/21/20 17:09 Laboratory results interpreted by me: 03/21/20 03/21/20 03/21/20 17:09 17:09 17:09 RBC 4.08 L Hgb 12.2 L Hct 35.9 L Glucose 135 H Urine Blood LARGE H - Diagnostic Test Radiology reviewed: Image reviewed, Reports reviewed Discharge - Discharge Clinical Impression: Left ureteral calculus, Flank pain Condition: Stable Disposition: HOME, SELF-CARE Instructions: Kidney Stone ([facility]) Additional Instructions: Please follow-up with the urologist provided. Return to the ER for any worsening pain, fevers, chills, vomiting, any other concerning symptoms. Referrals: DIANNA HEBERT MD [Primary Care Provider] - Follow up as needed JACKI ADAIR MD [NO LOCAL MD] - Follow up in 3-5 days
[2020-03-21 18:03] LABS: ALBUMIN 4.1 g/dL (3.5-5.0); ALKALINE PHOSPHATASE 101 U/L (38-126); ANION GAP 12 (5-19); ASPARTATE AMINO TRANSFERASE 22 U/L (17-59); BILIRUBIN,DIRECT 0.1 mg/dL (0.0-0.4); BILIRUBIN,TOTAL 0.7 mg/dL (0.2-1.3); BLOOD UREA NITROGEN 12 mg/dL (7-20); CALCIUM 9.5 mg/dL (8.4-10.2); CARBON DIOXIDE 26 mmol/L (22-30); CHLORIDE 100 mmol/L (98-107); GLUCOSE 135 mg/dL (75-110); TOTAL PROTEIN 6.8 g/dL (6.3-8.2)
[2020-03-21 19:39] VITALS: BP 108/65
== END 2020-03-21 19:37 | disposition home or self-care (01) ==
LOC: ER 16:28
DX: N20.1 Calculus of ureter (principal); R10.9 Unspecified abdominal pain; R10.32 Left lower quadrant pain; C79.2 Secondary malignant neoplasm of skin; E78.00 Pure hypercholesterolemia, unspecified; I10 Essential (primary) hypertension; Z87.442 Personal history of urinary calculi; Z88.6 Allergy status to analgesic agent; Z79.899 Other long term (current) drug therapy
CPT/HCPCS: 36415; 74176; 80053; 81001; 85025; 87086; 99284